=== PATIENT | male | born 1960 | race Caucasian/White ===

== ENCOUNTER 2021-02-02 13:41 | Emergency (ER) | payer MEDICAID, SELFPAY ==
--- NOTE | ~2021-02-02 | XR_ITS ---
EXAMINATION: CHEST, LEFT KNEE AND LEFT HIP CLINICAL INFORMATION: AMS. COMPARISON: Chest 07/27/2019 TECHNIQUE: Chest one view. Left knee 4 views. Left hip and AP pelvis 3 views. FINDINGS: CHEST: There is platelike atelectasis in the lingula. Rest lungs are clear. Heart size and pulmonary vascularity is normal. No gross bony abnormality seen. LEFT KNEE: There is moderate loss of medial and mild loss of vertebral compartment joint space without loose bodies, bony erosive changes or joint effusion. There is tricompartment periapical spurring. There is a small sclerotic density along the medial femoral condyle suggestive of osteochondritis dissecans. No abnormal joint effusion seen. LEFT HIP: There is a total left hip prosthesis with prosthetic components in satisfactory alignment. The right hip joint and the SI joints are symmetrical and normal. No visible acute fracture, dislocation or subluxation seen. XR/XR knee LT 4V IMPRESSION: Lingular platelike atelectasis. Total left hip prosthesis with prosthetic components in satisfactory alignment. Moderate degenerative changes medial and patellofemoral compartment with periarticular spurring of the tricompartments. 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 Total left hip prosthesis with the prosthetic components in satisfactory alignment. No acute fracture or dislocation seen.
--- NOTE | ~2021-02-02 | XR_ITS ---
EXAMINATION: CHEST, LEFT KNEE AND LEFT HIP CLINICAL INFORMATION: AMS. COMPARISON: Chest 07/27/2019 TECHNIQUE: Chest one view. Left knee 4 views. Left hip and AP pelvis 3 views. FINDINGS: CHEST: There is platelike atelectasis in the lingula. Rest lungs are clear. Heart size and pulmonary vascularity is normal. No gross bony abnormality seen. LEFT KNEE: There is moderate loss of medial and mild loss of vertebral compartment joint space without loose bodies, bony erosive changes or joint effusion. There is tricompartment periapical spurring. There is a small sclerotic density along the medial femoral condyle suggestive of osteochondritis dissecans. No abnormal joint effusion seen. LEFT HIP: There is a total left hip prosthesis with prosthetic components in satisfactory alignment. The right hip joint and the SI joints are symmetrical and normal. No visible acute fracture, dislocation or subluxation seen. XR/XR hip LT w PEL1V IMPRESSION: Lingular platelike atelectasis. Total left hip prosthesis with prosthetic components in satisfactory alignment. Moderate degenerative changes medial and patellofemoral compartment with periarticular spurring of the tricompartments. 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 Total left hip prosthesis with the prosthetic components in satisfactory alignment. No acute fracture or dislocation seen.
--- NOTE | ~2021-02-02 | XR_ITS ---
EXAMINATION: CHEST, LEFT KNEE AND LEFT HIP CLINICAL INFORMATION: AMS. COMPARISON: Chest 07/27/2019 TECHNIQUE: Chest one view. Left knee 4 views. Left hip and AP pelvis 3 views. FINDINGS: CHEST: There is platelike atelectasis in the lingula. Rest lungs are clear. Heart size and pulmonary vascularity is normal. No gross bony abnormality seen. LEFT KNEE: There is moderate loss of medial and mild loss of vertebral compartment joint space without loose bodies, bony erosive changes or joint effusion. There is tricompartment periapical spurring. There is a small sclerotic density along the medial femoral condyle suggestive of osteochondritis dissecans. No abnormal joint effusion seen. LEFT HIP: There is a total left hip prosthesis with prosthetic components in satisfactory alignment. The right hip joint and the SI joints are symmetrical and normal. No visible acute fracture, dislocation or subluxation seen. XR/XR chest 1V IMPRESSION: Lingular platelike atelectasis. Total left hip prosthesis with prosthetic components in satisfactory alignment. Moderate degenerative changes medial and patellofemoral compartment with periarticular spurring of the tricompartments. 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 Total left hip prosthesis with the prosthetic components in satisfactory alignment. No acute fracture or dislocation seen.
--- NOTE | ~2021-02-02 | CT_ITS ---
EXAMINATION: CT HEAD WITHOUT CONTRAST CLINICAL INFORMATION: Fall, AMS COMPARISON: None TECHNIQUE: Contiguous axial imaging was performed from the skull base to vertex without intravenous administration of contrast. This CT examination was performed using dose optimization techniques as appropriate, variously including the following: *Automated exposure control *Adjustment of mA and/or kV according to patient size (this includes techniques or standardized protocols for targeted exams where dose is matched to indication/reason for exam; i.e. extremities or head) *Use of iterative reconstruction technique DLP: 788 mGy-cm FINDINGS: There is no evidence of acute intracranial hemorrhage or territorial infarction. There is a small lacunar infarction right basal ganglia and chronically infarction along the left external capsule. No abnormal mass effect or midline shift is seen. Dorsey to white matter differentiation is well preserved. There is moderate prominence of bilateral frontal subarachnoid space. No extra-axial fluid collections are identified. The lateral ventricles are asymmetrical with left slightly larger the right but enlarged. There is moderate prominence of cerebellar arachnoid space in the posterior fossa suggestive of cerebellar volume loss. There is mild periventricular hypodensity in both cerebral hemispheres. The osseous structures and soft tissues are normal. The mastoid air cells and visualized portions of the paranasal sinuses are well aerated. CT/CT head/brain wo con IMPRESSION: No acute intracranial process seen. Moderate cerebellar and mild cerebral volume loss. Small lacunar infarction right basal ganglia and left external capsule.
[2021-02-02 13:55] VITALS: BP 129/84; PULSE 83; RESP 17; TEMP 36.4; O2SAT 95
[2021-02-02 14:03] VITALS: BP 129/80; BP 146/95; PULSE 83; PULSE 92; RESP 14; TEMP 36.4; O2SAT 94; O2SAT 97; BMI 24.4
--- NOTE | 2021-02-02 14:24 | ED.FALL ---
HPI - Fall General Chief Complaint: Fall <FÁTIMA Soto - Last Filed: 02/02/21 17:09> Stated Complaint: FALL <FÁTIMA Soto Last Filed: 02/02/21 17:09> Time Seen by Provider: 02/02/21 14:23 <FÁTIMA Soto Last Filed: 02/02/21 17:09> Source: other (RN from [facility]) <FÁTIMA Soto Last Filed: 02/02/21 17:09> Mode of arrival: EMS <FÁTIMA Soto Last Filed: 02/02/21 17:09> Limitations: altered mental status <FÁTIMA Soto Last Filed: 02/02/21 17:09> History of Present Illness HPI Narrative: 60-year-old male coming from neurological rehab facility who has history of hypoxic brain damage and epilepsy, presents for 2 falls in the last day. Both falls were witnessed because patient has a 1 on 1 staff member with him due to his increased aggression with other residents at the care facility. Patient had his left knee give out yesterday and fell onto his buttock. Same thing happened today. I spoke with RN at facility he says that normally patient waits for his meds, is not aggressive, goes to the dining room for his meals, and now has become more aggressive, is wandering the halls. RN states that patient can usually say her name, and has not been able to in the last 2 weeks. have changed in last 2 weeks. Patient is on Seroquel and has recently had an increase, no other med changes. No fevers, cough, vomiting, diarrhea. Patient has had stable vitals and is stable blood sugar <FÁTIMA Soto Last Filed: 02/02/21 17:09> Related Data Allergies/Adverse Reactions: Allergies Allergy/AdvReac Type Severity Reaction Status Date / Time No Known Allergies Allergy Unverified 11/18/19 19:51 [No Known Allergies*] <FÁTIMA Soto Last Filed: 02/02/21 17:09> Review of Systems Review of Systems: Review of systems limited by patient's brain injury <FÁTIMA Soto Last Filed: 02/02/21 17:09> Constitutional: Constitutional: Denies chills and Denies fever(s) <FÁTIMA Soto - Last Filed: 02/02/21 17:09> ENT: Denies post nasal drip and Denies sore throat <FÁTIMA Soto - Last Filed: 02/02/21 17:09> Cardiovascular: Cardiovascular: Denies chest pain, Denies leg edema and Denies Loss of Consciousness <FÁTIMA Soto - Last Filed: 02/02/21 17:09> Respiratory: Respiratory: Denies cough <FÁTIMA Soto - Last Filed: 02/02/21 17:09> Gastrointestinal: Gastrointestinal: Denies diarrhea and Denies vomiting <FÁTIMA Soto - Last Filed: 02/02/21 17:09> Musculoskeletal: Comments: left hip pain <FÁTIMA Soto - Last Filed: 02/02/21 17:09> Neurologic: Denies Abnormal speech present <FÁTIMA Soto - Last Filed: 02/02/21 17:09> [facility] Past Medical History [facility] Narrative: hypoxic brain injury; TBI epilepsy <FÁTIMA Soto - Last Filed: 02/02/21 17:09> Social History Social History: Social History Advance Directives: No Advance Directives Information Provided: Yes <FÁTIMA Soto - Last Filed: 02/02/21 17:09> Physical Exam Vital Signs: Vital Signs: Last Vital Signs Temp 97.5 F 02/02/21 14:03 Pulse 83 02/02/21 14:03 Resp 14 02/02/21 14:03 BP 129/80 02/02/21 14:03 Pulse Ox 94 02/02/21 14:03 BMI result Body Mass Index 24.4 <FÁTIMA Soto - Last Filed: 02/02/21 17:09> Vital Signs: Last Vital Signs Temp 97.5 F 02/02/21 14:03 Pulse 83 02/02/21 14:03 Resp 14 02/02/21 14:03 BP 129/80 02/02/21 14:03 Pulse Ox 94 02/02/21 14:03 BMI result Body Mass Index 24.4 <Arturo Pimentel MD - Last Filed: 02/02/21 16:51> Const: General: cooperative, no acute distress, well developed, alert and awake <Alida Tom ND - Last Filed: 02/02/21 17:09> Nutritional Appearance: well nourished <Alida Tom ND - Last Filed: 02/02/21 17:09> Orientation/consciousness: oriented to person, No oriented to place and No oriented to time <Alida Tom ND - Last Filed: 02/02/21 17:09> Limitations: physical limitations (brain injury) <Alida Tom ND - Last Filed: 02/02/21 17:09> HENMT: Head: Yes normal to inspection, Yes normocephalic and Yes atraumatic <Alida Tom ND - Last Filed: 02/02/21 17:09> Ears: hearing grossly normal bilaterally <Alida Tom ND - Last Filed: 02/02/21 17:09> General nose exam: Normal external nose present <Alida Tom ND - Last Filed: 02/02/21 17:09> Face and sinus: Yes normal facial exam <Alida Tom ND - Last Filed: 02/02/21 17:09> Mouth: Normal oral and palatal mucosa present <Alida Tom ND - Last Filed: 02/02/21 17:09> Throat: Yes posterior oropharynx normal <Alida Tom ND - Last Filed: 02/02/21 17:09> Eyes: Conjunctivae: conjunctivae normal <Alida Tom ND - Last Filed: 02/02/21 17:09> Pupils: Equal, round and reactive pupils present <Alida Tom ND - Last Filed: 02/02/21 17:09> EOM: EOMs intact bilaterally <Alida Tom ND - Last Filed: 02/02/21 17:09> Neck: Neck: Yes full ROM, Yes no lymphadenopathy and Yes supple <Alida Tom ND - Last Filed: 02/02/21 17:09> Resp: Effort & Inspection: normal respiratory effort and able to speak in complete sentences <Alida Tom ND - Last Filed: 02/02/21 17:09> Auscultation: clear to auscultation bilaterally, no crackles, no rales, no rhonchi and no wheezes <Alida Tom PA - Last Filed: 02/02/21 17:09> Cardio: Rate: regular rate <Alida Tom [facility] Last Filed: 02/02/21 17:09> Rhythm: regular rhythm <Alida Tom [facility] Last Filed: 02/02/21 17:09> Heart sounds: S1 normal heart sound present and S2 normal heart sound present <Alida Tom [facility] Last Filed: 02/02/21 17:09> GI: Inspection: Yes normal to inspection <Alida Tom [facility] Last Filed: 02/02/21 17:09> Palpation (GI): Soft to palpation, nontender, no guarding and not rigid <Alida Tom [facility] Last Filed: 02/02/21 17:09> Percussion: Yes normal to percussion <Alida Tom [facility] Last Filed: 02/02/21 17:09> Auscultation: normal bowel sounds <Alida Tom [facility] Last Filed: 02/02/21 17:09> Skin: General skin exam: no rashes or lesions noted <Alida Tom [facility] Last Filed: 02/02/21 17:09> Neuro: General: oriented to person, No oriented to place, No oriented to time, tone normal and moves all extremities <Alida Tom [facility] Last Filed: 02/02/21 17:09> Cranial nerves: Yes CN's II-XII intact bilaterally, Yes Equal, round and reactive pupils present, Yes Bilaterally intact EOM present, Yes Nystagmus not present, Yes Normal facial strength present, Yes Midline tongue present, Yes Ability to bilaterally rotate head present and Yes Ability to bilaterally elevate shoulders present <Alida Tom [facility] Last Filed: 02/02/21 17:09> Speech: No Abnormal speech present <Alida Tom [facility] Last Filed: 02/02/21 17:09> Gait exam (Neuro): Normal gait present <Alida Tom [facility] Last Filed: 02/02/21 17:09> Motor exam (neuro): 5/5 motor strength present throughout <Alida Tom [facility] Last Filed: 02/02/21 17:09> Coordination: No [id number] test normal (ataxic) <FÁTIMA Soto - Last Filed: 02/02/21 17:09> Pupils: Normal pupillary reactivity/response: bilateral <FÁTIMA Soto - Last Filed: 02/02/21 17:09> Extrem: General: Yes normal to inspection and Yes full ROM <FÁTIMA Soto - Last Filed: 02/02/21 17:09> Psych: Appearance: grossly normal <FÁTIMA Soto - Last Filed: 02/02/21 17:09> Affect: normal affect <FÁTIMA Soto - Last Filed: 02/02/21 17:09> Attitude: cooperative <FÁTIMA Soto - Last Filed: 02/02/21 17:09> Thought process: Normal thought process present <FÁTIMA Soto Last Filed: 02/02/21 17:09> Course Course Course Narrative: 60-year-old male with hypoxic brain injury at baseline, sent from neurologic care facility for evaluation of falls in the last day, and behavioral changes for the last 2 weeks. On exam, patient is pleasant and cooperative, is able to respond to commands. From a labs show white blood cell 4.3, mildly elevated LFTs. Head CT shows a lacunar infarct in the right basal ganglia and left external capsule. Patient has platelike atelectasis in lingula on chest x-ray, and arthritis in left hip and knee but no fracture or dislocation. Discussed with Dr Pimentel pt's low platelets and low WBC line; concern for pt possibly developing a hematological disorder. Patient's urine shows no infection. Will discharge patient back to [facility] with PCP follow-up for hematological changes and lacunar infarct. CT/CT head/brain wo con IMPRESSION: No acute intracranial process seen. ? Moderate cerebellar and mild cerebral volume loss. ? Small lacunar infarction right basal ganglia and left external capsule. XR FINDINGS: CHEST: There is platelike atelectasis in the lingula. Rest lungs are clear. Heart size and pulmonary vascularity is normal. No gross bony abnormality seen. LEFT KNEE: There is moderate loss of medial and mild loss of vertebral compartment joint space without loose bodies, bony erosive changes or joint effusion. There is tricompartment periapical spurring. There is a small sclerotic density along the medial femoral condyle suggestive of osteochondritis dissecans. No abnormal joint effusion seen. LEFT HIP: There is a total left hip prosthesis with prosthetic components in satisfactory alignment. The right hip joint and the SI joints are symmetrical and normal. No visible acute fracture, dislocation or subluxation seen.? <FÁTIMA Soto - Last Filed: 02/02/21 17:09> Reevaluation(s) Reevaluation #1: discussed plan and history with the patient <Arturo Pimentel MD - Last Filed: 02/02/21 16:51> Time: 16:51 <Arturo Pimentel MD - Last Filed: 02/02/21 16:51> MDM - Fall Lab Data Result diagrams: : 02/02/21 15:16 02/02/21 15:17 <FÁTIMA Soto - Last Filed: 02/02/21 17:09> Labs: Lab Results 02/02/21 02/02/21 02/02/21 Range/Units 15:16 15:16 15:17 WBC 4.3 L (4.8-10.8) X10*3/uL RBC 4.86 (4.60-5.80) X10*6/uL Hgb 14.4 (14.0-18.0) g/dl Hct 43.1 (42.0-52.0) % MCV 88.7 (80.0-98.0) fL MCH 29.6 (27.0-33.0) pg MCHC 33.4 (31.0-36.0) g/dl RDW 12.6 (11.0-16.0) % Plt Count 154 L (160-400) X10*3/uL MPV 9.3 L (9.4-12.4) fL Immature Gran % (Auto) 0.2 (0.0-0.4) % Neut % (Auto) 49.1 (45-73) % Lymph % (Auto) 38.5 (20-40) % [place] % (Auto) 10.8 (2-11) % Eos % (Auto) 0.9 (0-4) % Baso % (Auto) 0.5 (0-2) % Lymph # (Auto) 1.7 (1.2-4.9) X10*3/uL [place] # (Auto) 0.5 (0.1-1.2) X10*3/uL Eos # (Auto) 0.0 (0.0-0.4) X10*3/uL Baso # (Auto) 0.0 (0.0-0.2) X10*3/uL Abs Immat Gran (auto) 0.01 (0.00-0.03) X10*3/uL Absolute Neuts (auto) 2.1 (2.0-8.3) x10*3/uL Absolute Nucleated RBC 0.000 (0.0-0.012) X10*3/uL Nucleated RBC % (auto) 0.0 (0.0-0.2) /100WBC Sodium 141 (135-145) mmol/L Potassium 4.3 (3.3-5.1) mmol/L Chloride 108 (96-108) mmol/L Carbon Dioxide 26 (22-29) mmol/L Anion Gap 11 L (12-20) BUN 10 (9-16) mg/dL Creatinine 0.71 (0.5-1.4) mg/dL Estim Creat Clear Calc 119.9 Estimated GFR > 60 Random Glucose 108 (60-115) mg/dL Calcium 8.7 (8.4-10.2) mg/dL Total Bilirubin 0.5 (0.0-1.0) mg/dL AST 44 H (5-37) U/L ALT 71 H (0-40) U/L Alkaline Phosphatase 53 (39-117) U/L Total Protein 6.5 (6.5-8.0) g/dL Albumin 3.7 (3.5-5.0) g/dL Urine Color Urine Appearance Urine pH (5.0-8.0) Ur Specific [place] (1.005-1.025) Urine Protein (NEG-TRACE) MG/DL Urine Glucose (UA) (NEG) MG/DL Urine Ketones (NEG) MG/DL Urine Blood (NEG) Urine Nitrite (NEG) Ur Leukocyte Esterase (NEG) COVID-19 (ED) Negative (Negative) COVID-19 Clin Com See Note 02/02/21 Range/Units 16:52 WBC (4.8-10.8) X10*3/uL RBC (4.60-5.80) X10*6/uL Hgb (14.0-18.0) g/dl Hct (42.0-52.0) % MCV (80.0-98.0) fL MCH (27.0-33.0) pg MCHC (31.0-36.0) g/dl RDW (11.0-16.0) % Plt Count (160-400) X10*3/uL MPV (9.4-12.4) fL Immature Gran % (Auto) (0.0-0.4) % Neut % (Auto) (45-73) % Lymph % (Auto) (20-40) % [place] % (Auto) (2-11) % Eos % (Auto) (0-4) % Baso % (Auto) (0-2) % Lymph # (Auto) (1.2-4.9) X10*3/uL [place] # (Auto) (0.1-1.2) X10*3/uL Eos # (Auto) (0.0-0.4) X10*3/uL Baso # (Auto) (0.0-0.2) X10*3/uL Abs Immat Gran (auto) (0.00-0.03) X10*3/uL Absolute Neuts (auto) (2.0-8.3) x10*3/uL Absolute Nucleated RBC (0.0-0.012) X10*3/uL Nucleated RBC % (auto) (0.0-0.2) /100WBC Sodium (135-145) mmol/L Potassium (3.3-5.1) mmol/L Chloride (96-108) mmol/L Carbon Dioxide (22-29) mmol/L Anion Gap (12-20) BUN (9-16) mg/dL Creatinine (0.5-1.4) mg/dL Estim Creat Clear Calc Estimated GFR Random Glucose (60-115) mg/dL Calcium (8.4-10.2) mg/dL Total Bilirubin (0.0-1.0) mg/dL AST (5-37) U/L ALT (0-40) U/L Alkaline Phosphatase (39-117) U/L Total Protein (6.5-8.0) g/dL Albumin (3.5-5.0) g/dL Urine Color YELLOW Urine Appearance CLEAR Urine pH 6.0 (5.0-8.0) Ur Specific [place] 1.010 (1.005-1.025) Urine Protein NEG (NEG-TRACE) MG/DL Urine Glucose (UA) NEG (NEG) MG/DL Urine Ketones NEG (NEG) MG/DL Urine Blood NEG (NEG) Urine Nitrite NEG (NEG) Ur Leukocyte Esterase NEG (NEG) COVID-19 (ED) (Negative) COVID-19 Clin Com <FÁTIMA Soto - Last Filed: 02/02/21 17:09> Lab Results 02/02/21 02/02/21 02/02/21 Range/Units 15:16 15:16 15:17 WBC 4.3 L (4.8-10.8) X10*3/uL RBC 4.86 (4.60-5.80) X10*6/uL Hgb 14.4 (14.0-18.0) g/dl Hct 43.1 (42.0-52.0) % MCV 88.7 (80.0-98.0) fL MCH 29.6 (27.0-33.0) pg MCHC 33.4 (31.0-36.0) g/dl RDW 12.6 (11.0-16.0) % Plt Count 154 L (160-400) X10*3/uL MPV 9.3 L (9.4-12.4) fL Immature Gran % (Auto) 0.2 (0.0-0.4) % Neut % (Auto) 49.1 (45-73) % Lymph % (Auto) 38.5 (20-40) % [place] % (Auto) 10.8 (2-11) % Eos % (Auto) 0.9 (0-4) % Baso % (Auto) 0.5 (0-2) % Lymph # (Auto) 1.7 (1.2-4.9) X10*3/uL [place] # (Auto) 0.5 (0.1-1.2) X10*3/uL Eos # (Auto) 0.0 (0.0-0.4) X10*3/uL Baso # (Auto) 0.0 (0.0-0.2) X10*3/uL Abs Immat Gran (auto) 0.01 (0.00-0.03) X10*3/uL Absolute Neuts (auto) 2.1 (2.0-8.3) x10*3/uL Absolute Nucleated RBC 0.000 (0.0-0.012) X10*3/uL Nucleated RBC % (auto) 0.0 (0.0-0.2) /100WBC Sodium 141 (135-145) mmol/L Potassium 4.3 (3.3-5.1) mmol/L Chloride 108 (96-108) mmol/L Carbon Dioxide 26 (22-29) mmol/L Anion Gap 11 L (12-20) BUN 10 (9-16) mg/dL Creatinine 0.71 (0.5-1.4) mg/dL Estim Creat Clear Calc 119.9 Estimated GFR > 60 Random Glucose 108 (60-115) mg/dL Calcium 8.7 (8.4-10.2) mg/dL Total Bilirubin 0.5 (0.0-1.0) mg/dL AST 44 H (5-37) U/L ALT 71 H (0-40) U/L Alkaline Phosphatase 53 (39-117) U/L Total Protein 6.5 (6.5-8.0) g/dL Albumin 3.7 (3.5-5.0) g/dL Urine Color Urine Appearance Urine pH (5.0-8.0) Ur Specific [place] (1.005-1.025) Urine Protein (NEG-TRACE) MG/DL Urine Glucose (UA) (NEG) MG/DL Urine Ketones (NEG) MG/DL Urine Blood (NEG) Urine Nitrite (NEG) Ur Leukocyte Esterase (NEG) COVID-19 (ED) Negative (Negative) COVID-19 Clin Com See Note 02/02/21 Range/Units 16:52 WBC (4.8-10.8) X10*3/uL RBC (4.60-5.80) X10*6/uL Hgb (14.0-18.0) g/dl Hct (42.0-52.0) % MCV (80.0-98.0) fL MCH (27.0-33.0) pg MCHC (31.0-36.0) g/dl RDW (11.0-16.0) % Plt Count (160-400) X10*3/uL MPV (9.4-12.4) fL Immature Gran % (Auto) (0.0-0.4) % Neut % (Auto) (45-73) % Lymph % (Auto) (20-40) % [place] % (Auto) (2-11) % Eos % (Auto) (0-4) % Baso % (Auto) (0-2) % Lymph # (Auto) (1.2-4.9) X10*3/uL [place] # (Auto) (0.1-1.2) X10*3/uL Eos # (Auto) (0.0-0.4) X10*3/uL Baso # (Auto) (0.0-0.2) X10*3/uL Abs Immat Gran (auto) (0.00-0.03) X10*3/uL Absolute Neuts (auto) (2.0-8.3) x10*3/uL Absolute Nucleated RBC (0.0-0.012) X10*3/uL Nucleated RBC % (auto) (0.0-0.2) /100WBC Sodium (135-145) mmol/L Potassium (3.3-5.1) mmol/L Chloride (96-108) mmol/L Carbon Dioxide (22-29) mmol/L Anion Gap (12-20) BUN (9-16) mg/dL Creatinine (0.5-1.4) mg/dL Estim Creat Clear Calc Estimated GFR Random Glucose (60-115) mg/dL Calcium (8.4-10.2) mg/dL Total Bilirubin (0.0-1.0) mg/dL AST (5-37) U/L ALT (0-40) U/L Alkaline Phosphatase (39-117) U/L Total Protein (6.5-8.0) g/dL Albumin (3.5-5.0) g/dL Urine Color YELLOW Urine Appearance CLEAR Urine pH 6.0 (5.0-8.0) Ur Specific [place] 1.010 (1.005-1.025) Urine Protein NEG (NEG-TRACE) MG/DL Urine Glucose (UA) NEG (NEG) MG/DL Urine Ketones NEG (NEG) MG/DL Urine Blood NEG (NEG) Urine Nitrite NEG (NEG) Ur Leukocyte Esterase NEG (NEG) COVID-19 (ED) (Negative) COVID-19 Clin Com <Arturo Pimentel MD - Last Filed: 02/02/21 16:51> Discharge Plan Discharge Clinical Impression: Thrombocytopenia, Lacunar infarct, acute Leukopenia Qualifiers: Leukopenia type: unspecified Qualified Code(s): D72.819 - Decreased white blood cell count, unspecified <FÁTIMA Soto - Last Filed: 02/02/21 17:09> Patient Disposition: [facility] <FÁTIMA Soto - Last Filed: 02/02/21 17:09> Transfer Details: Back to [facility] <FÁTIMA Soto - Last Filed: 02/02/21 17:09> Back to [facility] facility <Arturo Pimentel MD - Last Filed: 02/02/21 16:51> Additional Instructions: Patient needs further evaluation for his low platelets and low white blood cell count. Patient was found to have a right-sided lacunar infarct. Patient needs follow-up with primary care provider. <FÁTIMA Soto - Last Filed: 02/02/21 17:09>
[2021-02-02 15:21] LABS: MANUAL DIFF FLAG NO
[2021-02-02 15:24] LABS: Basophils Percent Auto 0.5 % (0-2); Eosinophils Percent Auto 0.9 % (0-4); Hematocrit 43.1 % (42.0-52.0); Hemoglobin 14.4 g/dl (14.0-18.0); Imm Gran Abs Auto 0.01 X10*3/uL (0.00-0.03); Imm Gran Pct Auto 0.2 % (0.0-0.4); Lymphocytes Absolute Auto 1.7 X10*3/uL (1.2-4.9); Lymphocytes Percent Auto 38.5 % (20-40); Mean Corpuscular HGB Conc 33.4 g/dl (31.0-36.0); Mean Corpuscular Hemoglobin 29.6 pg (27.0-33.0); Mean Corpuscular Volume 88.7 fL (80.0-98.0); Mean Platelet Volume 9.3 fL (9.4-12.4); Monocytes Absolute Auto 0.5 X10*3/uL (0.1-1.2); Monocytes Percent Auto 10.8 % (2-11); Neutrophils Absolute Auto 2.1 x10*3/uL (2.0-8.3); Neutrophils Percent Auto 49.1 % (45-73); Platelet Count 154 X10*3/uL (160-400); Red Blood Count 4.86 X10*6/uL (4.60-5.80); Red Cell Distribution Width 12.6 % (11.0-16.0); White Blood Count 4.3 X10*3/uL (4.8-10.8)
[2021-02-02 15:39] LABS: COVID-19 Test Negative (Negative); IDNOW Serial# 9DD0AD1C
[2021-02-02 15:39] LABS: Alanine Aminotransferase 71 U/L (0-40); Albumin Level 3.7 g/dL (3.5-5.0); Alkaline Phosphatase 53 U/L (39-117); Anion Gap 11 (12-20); Aspartate Amino Transferase 44 U/L (5-37); Bilirubin Total 0.5 mg/dL (0.0-1.0); Blood Urea Nitrogen 10 mg/dL (9-16); Calcium 8.7 mg/dL (8.4-10.2); Carbon Dioxide 26 mmol/L (22-29); Chloride 108 mmol/L (96-108); Creatinine Clr Calc Pharmacy 119.9; Estimated Glomerular Filt Rate > 60; Glucose Random 108 mg/dL (60-115); Potassium 4.3 mmol/L (3.3-5.1); Sodium 141 mmol/L (135-145); Total Protein 6.5 g/dL (6.5-8.0)
[2021-02-02 16:59] LABS: Appearance Urine CLEAR; Color Urine YELLOW; Glucose Urine UA NEG (NEG); Leukocyte Esterase Urine NEG (NEG); Nitrite Urine NEG (NEG); Urine Blood NEG (NEG); Urine Ketones NEG (NEG); Urine Protein NEG (NEG-TRACE)
[2021-02-02 17:28] LABS: Mucus Urine TRACE /LPF; RBC Urine 0-2 /HPF (0); Squamous Epithelial Cell Urine TRACE /LPF; WBC Urine 0-2 /HPF (0-4)
== END 2021-02-02 22:14 ==
PROVIDERS: Physician Assistant; Emergency Provider Emergency Medicine
DX: I63.81 Other cerebral infarction due to occlusion or stenosis of small artery (principal); D72.819 Decreased white blood cell count, unspecified; G93.1 Anoxic brain damage, not elsewhere classified; G40.909 Epilepsy, unspecified, not intractable, without status epilepticus; Z20.822 Contact with and (suspected) exposure to COVID-19
CPT/HCPCS: 36415; 70450; 71045; 73502; 73564; 80053; 81001; 85025; 87635; 99284; 99285

== ENCOUNTER 2021-05-10 08:13 | Outpatient (REF) | payer MEDICAID, SELFPAY ==
--- NOTE | ~2021-05-10 | CT_ITS ---
EXAMINATION: CT HEAD WITH/WITHOUT CONTRAST CLINICAL INFORMATION: Epilepsy COMPARISON: 02/02/2021 TECHNIQUE: Contiguous axial imaging was performed from the skull base to vertex before and after the administration of 85 mL of Omnipaque [address] examination was performed using dose optimization techniques as appropriate, variously including the following: *Automated exposure control *Adjustment of mA and/or kV according to patient size (this includes techniques or standardized protocols for targeted exams where dose is matched to indication/reason for exam; i.e. extremities or head) *Use of iterative reconstruction technique DLP: 1658 mGy-cm FINDINGS: There is a holohemispheric left cerebral convexity subdural hematoma measuring 2 cm in thickness. This is uniform in attenuation, appearing isointense. There is mass effect locally with rightward midline shift of 0.8 cm. There is also a small right high convexity cerebral subdural hematoma. This measures 0.4 cm in thickness when measured on coronal imaging. There is no evidence of territorial infarction. Dorsey to white matter differentiation is well preserved. There is no abnormal enhancement. The ventricles are normal in size. Area of hypoattenuation involving the right temporal lobe suggesting chronic infarct, unchanged from prior. Areas of infarct also seen involving the cerebellum, in both hemispheres. The osseous structures and soft tissues are normal. The mastoid air cells and visualized portions of the paranasal sinuses are well aerated. CT/CT head/brain wo/w con IMPRESSION: Holohemispheric left subdural hematoma resulting in mass effect and rightward midline shift. There is also a small right high cerebral convexity subdural hematoma. This critical result was discussed with Katharine Martinez by telephone at 05/10/2021 9:43 AM and it was ascertained that the content and urgency of the report was understood at the time of direct communication.
[2021-05-10] MEDS: iohexoL 350 MG/ML 100 ML INFUS..BTL IV (09:33)
== END 2021-05-10 08:14 | disposition home or self-care (01) ==
LOC: HO.CT 08:13
PROVIDERS: Visit Provider Hospitalist
DX: G40.909 Epilepsy, unspecified, not intractable, without status epilepticus (principal)
CPT/HCPCS: 70470; Q9967

== ENCOUNTER 2021-05-10 09:35 | Emergency (ER) | payer MEDICAID, SELFPAY ==
[2021-05-10] VITALS (7 sets, daily range): BP systolic 106–151; BP diastolic 76–92; PULSE 62–78; RESP 10–18; TEMP 36.4–37.1; O2SAT 94–99; BMI 25.0; BMI 25.2
--- NOTE | 2021-05-10 10:09 | ECG_ITS ---
Test Reason : BRAIN BLEED Blood Pressure : / mmHG Vent. Rate : 070 BPM Atrial Rate : 070 BPM P-R Int : 200 ms QRS Dur : 076 ms QT Int : 378 ms P-R-T Axes : 052 062 062 degrees QTc Int : 408 ms Normal sinus rhythm Normal ECG When compared with ECG of 27-JUL-2019 22:17, Vent. rate has decreased BY 39 BPM Referred By: Katharine Martinez Electronically Signed By:BRITNEY ABRAHAM MD
--- NOTE | 2021-05-10 10:30 | ED.GENADULT ---
HPI - General Adult General Chief complaint: General Medical Stated complaint: abnormal ct scan Time Seen by Provider: 05/10/21 09:41 Source: patient and other (half-way staff) Mode of arrival: ambulatory Limitations: no limitations History of Present Illness HPI narrative: Patient was asked to come to the emergency room after he had a head CT done earlier today. The CT scan shows a holohemispheric left subdural hematoma resulting in mass effect and rightward midline shift, also a small right cerebral subdural hematoma. Patient has history of hypoxic brain injury, and therefore he is a poor historian. Patient is asymptomatic, his behavior is at baseline per caretakers. Also, I spoke with Dr. Hollins who knows the patient very well. Starting at the beginning of April, patient has had behavioral changes, the neurologist ordered an EEG and head CT. Head CT was done today which showed the above-mentioned. Patient cannot remember if he fell. Patient used to be on a one-to-one until approximately 1 week. Related Data Previous Rx's Medication Instructions Recorded methylprednisolone 4 mg tablet See Rx Instructions .ROUTE 05/10/21 (Medrol) .COMPLEX #21 tab tranexamic acid 650 mg tablet 650 mg PO BID 21 Days #42 tab 05/10/21 Allergies Allergy/AdvReac Type Severity Reaction Status Date / Time No Known Allergies Allergy Unverified 11/18/19 19:51 [No Known Allergies*] Review of Systems Review of Systems: Constitutional : No fever ENT/Mouth : No ear pain or sore throat Eyes: No eye pain or swelling Cardiovascular : No Chest Pain, No SOB Respiratory : No Cough, No Sputum, No Wheezing, No Smoke Exposure, No Dyspnea Gastrointestinal : No nausea vomiting or diarrhea Genitourinary : No dysuria or hematuria Musculoskeletal : No joint pain or swelling Skin : No Skin Lesions, No rash Neuro : No headache, no dizziness, no motor weakness or paresthesias Psych : No anxiety or depression Heme/Lymph: No Bruising, No Bleeding Endocrine : No Polyuria, No Polydipsia PMFSH Past Medical History Medical History (Updated 05/10/21 @ 12:51 by Katharine Martinez MD) Anoxic brain injury Epilepsy Lacunar infarction Subdural hematoma Social History Social History Alcohol intake: never Patient Tobacco Use Status: Never used Tobacco Use of substances other than those prescribed or required for medical reasons: No Advance Directives: Yes Advance Directives Information Provided: Yes Advance Directives on File: No Physical Exam ED Vital Signs: Vital Signs - 24 hr 05/10/21 09:41 05/10/21 10:25 05/10/21 10:55 Temperature 98.8 F 98.2 F Pulse Rate 70 66 64 Respiratory Rate 18 10 L 13 Blood Pressure 140/91 H 128/91 H 136/83 Pulse Oximetry 94 94 99 05/10/21 11:11 05/10/21 11:43 Temperature 98.4 F 97.8 F Pulse Rate 65 65 Respiratory Rate 11 L 10 L Blood Pressure 106/76 130/90 H Pulse Oximetry 97 97 BMI result Body Mass Index 25.2 Course Course Course Narrative: I discussed the patient with Dr. Lucas. Initially, since patient is asymptomatic, recommended that the patient can stay here. Dr. Hollins came to see the patient who knows very well. Patient is neurologically and mentally at baseline. Patient remains asymptomatic, alert and oriented, neurologically intact 11:40 Dr. Lucas, recommends transfer to [facility]. I discussed the patient with neurosurgery FÁTIMA Means, who consulted with the neurosurgery attending. At this time, emergent transferred is not necessary. Patient can go home and they will repeat the head CT in 2 weeks. Recommendations: 650 mg of p.o. tranexamic acid for 21 days and Solu-Medrol Dosepak Patient was given the 1st dose TXA oral in the emergency room. IV forearm had to be used, but given orally, ok per pharmacy Medical Decision Making Lab Data Result diagrams: 05/10/21 10:30 05/10/21 10:29 Labs: Lab Results 05/10/21 05/10/21 05/10/21 Range/Units 10:27 10:29 10:29 WBC (4.8-10.8) X10*3/uL RBC (4.60-5.80) X10*6/uL Hgb (14.0-18.0) g/dl Hct (42.0-52.0) % MCV (80.0-98.0) fL MCH (27.0-33.0) pg MCHC (31.0-36.0) g/dl RDW (11.0-16.0) % Plt Count (160-400) X10*3/uL MPV (9.4-12.4) fL Immature Gran % (Auto) (0.0-0.4) % Neut % (Auto) (45-73) % Lymph % (Auto) (20-40) % Canyon % (Auto) (2-11) % Eos % (Auto) (0-4) % Baso % (Auto) (0-2) % Lymph # (Auto) (1.2-4.9) X10*3/uL Canyon # (Auto) (0.1-1.2) X10*3/uL Eos # (Auto) (0.0-0.4) X10*3/uL Baso # (Auto) (0.0-0.2) X10*3/uL Abs Immat Gran (auto) (0.00-0.03) X10*3/uL Absolute Neuts (auto) (2.0-8.3) x10*3/uL Absolute Nucleated RBC (0.0-0.012) X10*3/uL Nucleated RBC % (auto) (0.0-0.2) /100WBC PT 12.9 (9.9-13.0) SEC INR 1.1 (0.9-1.1) Sodium 140 (135-145) mmol/L Potassium 4.4 (3.3-5.1) mmol/L Chloride 104 (96-108) mmol/L Carbon Dioxide 28 (22-29) mmol/L Anion Gap 12 (12-20) BUN 10 (9-16) mg/dL Creatinine 0.74 (0.5-1.4) mg/dL Estim Creat Clear Calc 115.0 Estimated GFR > 60 POC Glucose 92 (60-115) mg/dL Random Glucose 86 (60-115) mg/dL Calcium 9.2 (8.4-10.2) mg/dL Troponin I High Sens (<3.5-35.0) ng/L Urine Color Urine Appearance Urine pH (5.0-8.0) Ur Specific [place] (1.005-1.025) Urine Protein (NEG-TRACE) MG/DL Urine Glucose (UA) (NEG) MG/DL Urine Ketones (NEG) MG/DL Urine Blood (NEG) Urine Nitrite (NEG) Ur Leukocyte Esterase (NEG) Urine Opiates Screen (Not Detect) Urine Fentanyl Screen (Not Detect) Ur Barbiturates Screen (Not Detect) Ur Phencyclidine Scrn (Not Detect) Ur Amphetamines Screen (Not Detect) U Benzodiazepines Scrn (Not Detect) Urine Cocaine Screen (Not Detect) U Marijuana (THC) Screen (Not Detect) COVID-19 (ED) (Negative) COVID-19 Clin Com 05/10/21 05/10/21 05/10/21 Range/Units 10:29 10:29 10:30 WBC 3.8 L (4.8-10.8) X10*3/uL RBC 4.65 (4.60-5.80) X10*6/uL Hgb 13.5 L (14.0-18.0) g/dl Hct 41.1 L (42.0-52.0) % MCV 88.4 (80.0-98.0) fL MCH 29.0 (27.0-33.0) pg MCHC 32.8 (31.0-36.0) g/dl RDW 12.7 (11.0-16.0) % Plt Count 153 L (160-400) X10*3/uL MPV 9.1 L (9.4-12.4) fL Immature Gran % (Auto) 0.3 (0.0-0.4) % Neut % (Auto) 46.1 (45-73) % Lymph % (Auto) 42.6 H (20-40) % Canyon % (Auto) 8.4 (2-11) % Eos % (Auto) 2.1 (0-4) % Baso % (Auto) 0.5 (0-2) % Lymph # (Auto) 1.6 (1.2-4.9) X10*3/uL Canyon # (Auto) 0.3 (0.1-1.2) X10*3/uL Eos # (Auto) 0.1 (0.0-0.4) X10*3/uL Baso # (Auto) 0.0 (0.0-0.2) X10*3/uL Abs Immat Gran (auto) 0.01 (0.00-0.03) X10*3/uL Absolute Neuts (auto) 1.8 L (2.0-8.3) x10*3/uL Absolute Nucleated RBC 0.000 (0.0-0.012) X10*3/uL Nucleated RBC % (auto) 0.0 (0.0-0.2) /100WBC PT (9.9-13.0) SEC INR (0.9-1.1) Sodium (135-145) mmol/L Potassium (3.3-5.1) mmol/L Chloride (96-108) mmol/L Carbon Dioxide (22-29) mmol/L Anion Gap (12-20) BUN (9-16) mg/dL Creatinine (0.5-1.4) mg/dL Estim Creat Clear Calc Estimated GFR POC Glucose (60-115) mg/dL Random Glucose (60-115) mg/dL Calcium (8.4-10.2) mg/dL Troponin I High Sens < 3.5 (<3.5-35.0) ng/L Urine Color Urine Appearance Urine pH (5.0-8.0) Ur Specific [place] (1.005-1.025) Urine Protein (NEG-TRACE) MG/DL Urine Glucose (UA) (NEG) MG/DL Urine Ketones (NEG) MG/DL Urine Blood (NEG) Urine Nitrite (NEG) Ur Leukocyte Esterase (NEG) Urine Opiates Screen (Not Detect) Urine Fentanyl Screen (Not Detect) Ur Barbiturates Screen (Not Detect) Ur Phencyclidine Scrn (Not Detect) Ur Amphetamines Screen (Not Detect) U Benzodiazepines Scrn (Not Detect) Urine Cocaine Screen (Not Detect) U Marijuana (THC) Screen (Not Detect) COVID-19 (ED) Negative (Negative) COVID-19 Clin Com See Note 05/10/21 05/10/21 Range/Units 11:09 11:09 WBC (4.8-10.8) X10*3/uL RBC (4.60-5.80) X10*6/uL Hgb (14.0-18.0) g/dl Hct (42.0-52.0) % MCV (80.0-98.0) fL MCH (27.0-33.0) pg MCHC (31.0-36.0) g/dl RDW (11.0-16.0) % Plt Count (160-400) X10*3/uL MPV (9.4-12.4) fL Immature Gran % (Auto) (0.0-0.4) % Neut % (Auto) (45-73) % Lymph % (Auto) (20-40) % Canyon % (Auto) (2-11) % Eos % (Auto) (0-4) % Baso % (Auto) (0-2) % Lymph # (Auto) (1.2-4.9) X10*3/uL Canyon # (Auto) (0.1-1.2) X10*3/uL Eos # (Auto) (0.0-0.4) X10*3/uL Baso # (Auto) (0.0-0.2) X10*3/uL Abs Immat Gran (auto) (0.00-0.03) X10*3/uL Absolute Neuts (auto) (2.0-8.3) x10*3/uL Absolute Nucleated RBC (0.0-0.012) X10*3/uL Nucleated RBC % (auto) (0.0-0.2) /100WBC PT (9.9-13.0) SEC INR (0.9-1.1) Sodium (135-145) mmol/L Potassium (3.3-5.1) mmol/L Chloride (96-108) mmol/L Carbon Dioxide (22-29) mmol/L Anion Gap (12-20) BUN (9-16) mg/dL Creatinine (0.5-1.4) mg/dL Estim Creat Clear Calc Estimated GFR POC Glucose (60-115) mg/dL Random Glucose (60-115) mg/dL Calcium (8.4-10.2) mg/dL Troponin I High Sens (<3.5-35.0) ng/L Urine Color YELLOW Urine Appearance CLEAR Urine pH 6.0 (5.0-8.0) Ur Specific [place] <= 1.005 (1.005-1.025) Urine Protein NEG (NEG-TRACE) MG/DL Urine Glucose (UA) NEG (NEG) MG/DL Urine Ketones NEG (NEG) MG/DL Urine Blood NEG (NEG) Urine Nitrite NEG (NEG) Ur Leukocyte Esterase NEG (NEG) Urine Opiates Screen Not Detected (Not Detect) Urine Fentanyl Screen Not Detected (Not Detect) Ur Barbiturates Screen Not Detected (Not Detect) Ur Phencyclidine Scrn Not Detected (Not Detect) Ur Amphetamines Screen Not Detected (Not Detect) U Benzodiazepines Scrn Not Detected (Not Detect) Urine Cocaine Screen Not Detected (Not Detect) U Marijuana (THC) Screen Not Detected (Not Detect) COVID-19 (ED) (Negative) COVID-19 Clin Com Discharge Plan Discharge Clinical Impression: Subdural hematoma Patient Disposition: Home, Self-Care Instructions: Intracranial Hematoma (ED) Additional Instructions: [facility] will schedule an appointment for you in [address] scan. If you have any new symptoms, please return to the emergency room immediately. Also, please follow-up with your primary care physician tomorrow. If you have any worsening or new symptoms, please return to the emergency room or call 911 Prescriptions: New methylprednisolone [Medrol] 4 mg tablet See Rx Instructions .ROUTE .COMPLEX Qty: 21 0RF Rx Instructions: Day 1: 24 mg on day 1 administered as 8 mg (2 tablets) before breakfast, 4 mg (1 tablet) after lunch, 4 mg (1 tablet) after supper, and 8 mg (2 tablets) at bedtime or 24 mg (6 tablets) as a single dose or divided into 2 or 3 doses upon initiation (regardless of time of day). Day 2: 20 mg on day 2 administered as 4 mg (1 tablet) before breakfast, 4 mg (1 tablet) after lunch, 4 mg (1 tablet) after supper, and 8 mg (2 tablets) at bedtime. Day 3: 16 mg on day 3 administered as 4 mg (1 tablet) before breakfast, 4 mg (1 tablet) after lunch, 4 mg (1 tablet) after supper, and 4 mg (1 tablet) at bedtime. Day 4: 12 mg on day 4 administered as 4 mg (1 tablet) before breakfast, 4 mg (1 tablet) after lunch, and 4 mg (1 tablet) at bedtime. Day 5: 8 mg on day 5 administered as 4 mg (1 tablet) before breakfast and 4 mg (1 tablet) at bedtime. Day 6: 4 mg on day 6 administered as 4 mg (1 tablet) before breakfast. tranexamic acid 650 mg tablet 650 mg PO BID 21 Days Qty: 42 0RF
[2021-05-10 10:31] LABS: Glucose, Whole Blood 92 mg/dL (60-115)
[2021-05-10 10:36] LABS: MANUAL DIFF FLAG NO
[2021-05-10 10:38] LABS: Basophils Percent Auto 0.5 % (0-2); Eosinophils Absolute Auto 0.1 X10*3/uL (0.0-0.4); Eosinophils Percent Auto 2.1 % (0-4); Hematocrit 41.1 % (42.0-52.0); Hemoglobin 13.5 g/dl (14.0-18.0); Imm Gran Abs Auto 0.01 X10*3/uL (0.00-0.03); Imm Gran Pct Auto 0.3 % (0.0-0.4); Lymphocytes Absolute Auto 1.6 X10*3/uL (1.2-4.9); Lymphocytes Percent Auto 42.6 % (20-40); Mean Corpuscular HGB Conc 32.8 g/dl (31.0-36.0); Mean Corpuscular Volume 88.4 fL (80.0-98.0); Mean Platelet Volume 9.1 fL (9.4-12.4); Monocytes Absolute Auto 0.3 X10*3/uL (0.1-1.2); Monocytes Percent Auto 8.4 % (2-11); Neutrophils Absolute Auto 1.8 x10*3/uL (2.0-8.3); Neutrophils Percent Auto 46.1 % (45-73); Platelet Count 153 X10*3/uL (160-400); Red Blood Count 4.65 X10*6/uL (4.60-5.80); Red Cell Distribution Width 12.7 % (11.0-16.0); White Blood Count 3.8 X10*3/uL (4.8-10.8)
--- NOTE | 2021-05-10 10:39 | PC.NURSE ---
this rn called [facility] ) and spoke to jacob groves rn who states that pt has been having increased confusion and aggression. pt amb (i) gait steady, gait slightly unsteady at times. s/p fall on 05/04. this rn also spoke with marva (dns at [facility]) who states that pt had seen neurolgy on 04/04/21 and an eeg and ct scan was ordered to r/o seizures. pt s/p fall on 05/04 pt had denied hitting head/loc. pt was npo prior to ct scan this am. pt last dose of aspiring 325mg po was taken on 05/09/[address] flowers is aware.
[2021-05-10 10:49] LABS: INTERNATIONAL NORM RATIO 1.1 (0.9-1.1); Prothrombin Time 12.9 SEC (9.9-13.0)
[2021-05-10 10:53] LABS: Anion Gap 12 (12-20); Blood Urea Nitrogen 10 mg/dL (9-16); Calcium 9.2 mg/dL (8.4-10.2); Carbon Dioxide 28 mmol/L (22-29); Chloride 104 mmol/L (96-108); Estimated Glomerular Filt Rate > 60; Glucose Random 86 mg/dL (60-115); Potassium 4.4 mmol/L (3.3-5.1); Sodium 140 mmol/L (135-145)
[2021-05-10 11:00] LABS: Troponin-I High Sensitivity < 3.5 ng/L (<3.5-35.0)
[2021-05-10 11:34] LABS: Appearance Urine CLEAR; Color Urine YELLOW; Glucose Urine UA NEG (NEG); Leukocyte Esterase Urine NEG (NEG); Nitrite Urine NEG (NEG); Specific Gravity - Urine <= 1.005 (1.005-1.025); Urine Blood NEG (NEG); Urine Ketones NEG (NEG); Urine Protein NEG (NEG-TRACE)
[2021-05-10 11:41] LABS: COVID-19 Test Negative (Negative); IDNOW Serial# 55D5AD1C
--- NOTE | 2021-05-10 11:45 | PC.NURSE ---
@ 1145AM DR FLORES REQUESTS CALL OUT TO [facility] PT TX LINE FOR NEUROSURGERY JACOBO ANSWERS, TAKES PT INF THEN ASKS TO SPEAK WITH DR MARK FLORES TAKES OVER CALL RIGHT AWAY
[2021-05-10 11:49] LABS: Amphetamine Screen Urine Not Detected (Not Detect); Barbiturates, Urine Not Detected (Not Detect); Benzodiazepines Screen Urine Not Detected (Not Detect); Cannabinoid Screen Urine Not Detected (Not Detect); Cocaine Screen Urine Not Detected (Not Detect); Fentanyl, urine Not Detected (Not Detect); Opiate Screen Urine Not Detected (Not Detect); Phencyclidine Screen Urine Not Detected (Not Detect)
--- NOTE | 2021-05-10 11:55 | PC.NURSE ---
JACOBO FROM [facility] PT TX LINE CALLS AND ASKS TO SPEAK WITH DR FLORES @ THIS TIME DR FLORES TAKES OVER CALL RIGHT AWAY
--- NOTE | 2021-05-10 12:02 | PC.NURSE ---
LEXIS FROM [facility] PT TX LINECALL AND ASKS TO SPEAK WITH DR FLORES @ THIS TIME DR FLORES TAKES OVER CALL RIGHT AWAY
[2021-05-10] MEDS: Tranexamic Acid 1,000 MG/10 ML VIAL 650 MG IV (12:56)
--- NOTE | 2021-05-10 13:43 | PC.NURSE ---
rn to rn given to ronna at [facility] facility. pt aware of plan of care for transfer to facility via ambulance. pt is asymptomatic. amb (i) gait steady.
[2021-05-10 13:54] LABS: RBC Urine 0 /HPF (0); WBC Urine 0 /HPF (0-4)
[2021-05-10 14:16] LABS: Partial Thromboplastin Time 34.5 SEC (24.1-38.0)
[2021-05-10 14:20] LABS: Ethanol < 10 mg/dL
--- NOTE | 2021-05-10 19:31 | PC.NURSE ---
[facility] contacted to be made aware of transport back to facility. patient in no distress on departure, ambulatory throughout care of patient. patient mildly confused about situation, but easily redirectable. patient able to move all extremities without issue, no facial drop, eyes equal and reactive on departure. all belongings with patient at departure
== END 2021-05-10 19:34 | disposition skilled nursing facility (03) ==
PROVIDERS: Emergency Provider Emergency Medicine; PCP Hospitalist
DX: I62.00 Nontraumatic subdural hemorrhage, unspecified (principal); G40.909 Epilepsy, unspecified, not intractable, without status epilepticus; Z87.820 Personal history of traumatic brain injury; Z20.822 Contact with and (suspected) exposure to COVID-19
CPT/HCPCS: 36415; 80048; 80307; 81001; 82077; 82947; 84484; 85025; 85610; 85730; 87635; 93005; 96361; 96374; 99285

== ENCOUNTER 2021-06-13 18:26 | Emergency (ER) | payer MEDICAID, SELFPAY ==
--- NOTE | ~2021-06-13 | CT_ITS ---
EXAMINATION: CT HEAD WITHOUT CONTRAST CT CERVICAL SPINE WITHOUT CONTRAST CLINICAL INFORMATION: Fall. Head strike. COMPARISON: CT head from 05/10/2021. TECHNIQUE: Contiguous axial imaging was performed from the skull base to vertex without intravenous administration of contrast. Contiguous axial imaging was performed from the upper chest through the skull base without intravenous administration of contrast. Coronal and sagittal reformats were obtained at the acquisition workstation. This CT examination was performed using dose optimization techniques as appropriate, variously including the following: *Automated exposure control. *Adjustment of mA and/or kV according to patient size (this includes techniques or standardized protocols for targeted exams where dose is matched to indication/reason for exam; i.e. extremities or head). *Use of iterative reconstruction technique. DLP: 1227 mGy-cm FINDINGS: Head: Redemonstrated left hemispheric subdural hematoma with internal septations. The majority of the blood products within this collection have decreased in attenuation compared to exam from 05/10/2021. Hematoma now measures up to 2.7 cm in depth (previously 2 cm). The mixed attenuating outer blood products remain age indeterminate at this time; however, there heterogeneity and apparent septation formation suggests an ongoing chronic process. Along with the mild increase in size of this collection compared to 05/10/2021, there is now 0.8 cm rightward midline shift (previously 0.6 cm. Partial effacement of the left lateral ventricle. Stable size of the right lateral and third ventricles without evidence of obstructive hydrocephalus. Interval decrease in size of a now trace right-sided subdural collection along the posterior vertex (0.1 cm in depth). Chronic encephalomalacia of the right temporal lobe and bilateral cerebellar hemispheres. Chronic lacunar infarcts of the caudate nuclei. No evidence of additional acute intracranial hemorrhagic products. No acute soft tissue or osseous abnormalities. Mild mucosal thickening of the paranasal sinuses. The mastoid air cells and middle ear cavities are clear. Cervical Spine: The atlantooccipital and atlantoaxial articulations remain well aligned. Straightening of the normal cervical lordosis. Otherwise, there is anatomic alignment of the vertebral bodies and posterior elements. No evidence of acute fracture or subluxation. The vertebral body heights are maintained. Advanced degenerative disc disease from C4-C7. Moderate degenerative disc disease from C2-C4. Associated disc/osteophyte complex formation. Facet and uncovertebral joint arthropathy leads to osseous encroachment on the neural foramina from C3-C7. There is no prevertebral soft tissue swelling. The thyroid gland and remaining cervical soft tissues are normal in appearance. The lung apices demonstrate no abnormalities. CT/CT cervical spine wo con IMPRESSION: 1. Redemonstrated large left hemispheric subdural hematoma with internal septations. The blood products within this collection have overall decreased in attenuation compared to exam from 05/10/2021. While there is no demonstrated overt acute intracranial hemorrhage, there remains scattered regions of hyperattenuation within loculations of this left hemispheric collection suggestive of multiaged breakdown of blood products. The collection has partially increased in size compared to 05/10/2021 with associated increased mass effect and left cerebral hemisphere. Given the overall degree of generalized cerebral volume loss, there is partial effacement of the left lateral ventricle and 0.8 cm rightward midline shift but no evidence of obstructive hydrocephalus at this time. Continued follow-up of this subdural hematoma is recommended to exclude the possibility of progressive enlargement. 2. Chronic encephalomalacia of the right temporal lobe and bilateral cerebellar hemispheres. 3. No evidence of acute fracture or traumatic dislocation of the cervical spine. Moderate multilevel degenerative spondyloarthropathy of the cervical spine.
--- NOTE | 2021-06-13 18:43 | ED_ITS ---
HPI - Fall General Chief Complaint: Failure to Thrive Stated Complaint: FALL OUT OF W/C @SNF W/HEAD STRIKE,-CCOLLAR PER EM Time Seen by Provider: 06/13/21 19:28 Source: patient and EMS Mode of arrival: EMS Limitations: altered mental status History of Present Illness HPI Narrative: 60-year-old male presents via EMS from a prison facility for a fall with head strike. Patient was being transported from wheelchair to bed, fell and hit his head on the ground. No reported loss of consciousness. Patient has a past history of subdural bleed on 05/10/2021. complaint: fall Onset (ago): hour(s) (Hours prior to arrival) Fall from: standing Fall witnessed: yes, by living facility staff Place fall occurred: long term/SNF Loss of consciousness: none Prolonged down time: no Symptoms prior to fall: none Context: tripped/slipped Location of injury: head Severity: mild Severity scale (1-10): 1 Associated symptoms (after fall): denies Related Data Previous Rx's Medication Instructions Recorded methylprednisolone 4 mg tablet See Rx Instructions .ROUTE 05/10/21 (Medrol) .COMPLEX #21 tab tranexamic acid 650 mg tablet 650 mg PO BID 21 Days #42 tab 05/10/21 Allergies Allergy/AdvReac Type Severity Reaction Status Date / Time No Known Allergies Allergy Unverified 11/18/19 19:51 [No Known Allergies*] Review of Systems Review of Systems: Yes Unobtainable due to mental status PMFSH Past Medical History Attestation statement: The following information was validated with the patient. Source: old records reviewed Medical History Anoxic brain injury Epilepsy Lacunar infarction Subdural hematoma Social History Social History Alcohol intake: never Patient Tobacco Use Status: Never used Tobacco Advance Directives: No Advance Directives Information Provided: No Physical Exam Vital Signs: Vital Signs: Last Vital Signs Temp 98.2 F 06/13/21 20:29 Pulse 87 06/13/21 20:29 Resp 21 H 06/13/21 20:29 BP 143/91 H 06/13/21 20:29 Pulse Ox 95 06/13/21 20:29 BMI result Body Mass Index 31.4 Appearance: Alert. Oriented to self. No acute distress. Eyes: Pupils equal, round and reactive to light. ENT: Pharynx normal. Neck: Normal inspection. Neck supple. CVS: Normal heart rate and rhythm. Pulses normal. Respiratory: No respiratory distress. Breath sounds normal. Abdomen: Soft and nontender. Skin: Skin warm and dry. Normal skin color. Normal skin turgor. Extremities: No lower extremity edema. Right-sided strength 3/5 versus left- sided 5/5. Moves all extremities as directed. Neuro: No motor deficit. No sensory deficit. Cranial nerves 2-12 intact. Course Course Course Narrative: 60-year-old male presents via EMS from prison facility for head injury after a fall while transferring from wheelchair to bed. Patient has a known history of TBI, history of anoxic brain injury, left hip replacement, epilepsy, history of metabolic encephalopathy, history of cerebral infarction. Patient is able to follow simple commands. Does not know what the date is, where he is, believes it is 1989, does not know who the president is. He has right-sided weakness strength 3/5 versus 5/5 to the left side. GCS 14. Patient is unable to complete the NIH stroke scale as he is not able to follow directions appropriately. Order for CT scan of head and cervical spine. Labs, EKG pending. 19:34 audio visual technician called this [employer] for question of subdural bleed. 19:46 this CASINO ACCOUNTANT called out to [facility] to speak to reading radiologist. left subdural present since May. No acute findings at this time. 20:15 DR Armenta review discharge and CT scan findings. No acute findings noted. Plan is to DC to prison facility. 20:54 discussion with [facility] staff, patient's baseline is consistent with my findings of his physical exam. Plan is to DC to prison facili ty. MDM - Fall MDM Narrative Medical decision making narrative: Subdural, CVA Differential Diagnosis Differential diagnosis: Likely fracture and concussion without loss of consciousness Medical Records Attestation: I reviewed the patient's medical records. Lab Data Attestation: I reviewed the patient's lab results. Result diagrams: 06/13/21 19:40 06/13/21 19:40 Labs: Lab Results 06/13/21 06/13/21 06/13/21 Range/Units 19:40 19:40 19:40 WBC 6.0 (4.8-10.8) X10*3/uL RBC 4.91 (4.60-5.80) X10*6/uL Hgb 14.0 (14.0-18.0) g/dl Hct 41.8 L (42.0-52.0) % MCV 85.1 (80.0-98.0) fL MCH 28.5 (27.0-33.0) pg MCHC 33.5 (31.0-36.0) g/dl RDW 13.0 (11.0-16.0) % Plt Count 212 D (160-400) X10*3/uL MPV 8.7 L (9.4-12.4) fL Immature Gran % (Auto) 0.2 (0.0-0.4) % Neut % (Auto) 47.3 (45-73) % Lymph % (Auto) 38.4 (20-40) % [place] % (Auto) 11.6 H (2-11) % Eos % (Auto) 2.2 (0-4) % Baso % (Auto) 0.3 (0-2) % Lymph # (Auto) 2.3 (1.2-4.9) X10*3/uL [place] # (Auto) 0.7 (0.1-1.2) X10*3/uL Eos # (Auto) 0.1 (0.0-0.4) X10*3/uL Baso # (Auto) 0.0 (0.0-0.2) X10*3/uL Abs Immat Gran (auto) 0.01 (0.00-0.03) X10*3/uL Absolute Neuts (auto) 2.8 (2.0-8.3) x10*3/uL Absolute Nucleated RBC 0.000 (0.0-0.012) X10*3/uL Nucleated RBC % (auto) 0.0 (0.0-0.2) /100WBC PT 11.9 (9.9-13.0) SEC INR 1.0 (0.9-1.1) APTT 32.8 (24.1-38.0) SEC Troponin I High Sens < 3.5 (<3.5-35.0) ng/L Imaging Data CT head cervical spine: Attestation: I personally reviewed and interpreted this imaging study as follows: Radiologist's impression: FINDINGS: Head: Redemonstrated left hemispheric subdural hematoma with internal septations. The majority of the blood products within this collection have decreased in attenuation compared to exam from 05/10/2021. Hematoma now measures up to 2.7 cm in depth (previously 2 cm). The mixed attenuating outer blood products remain age indeterminate at this time; however, there heterogeneity and apparent septation formation suggests an ongoing chronic process. Along with the mild increase in size of this collection compared to 05/10/2021, there is now 0.8 cm rightward midline shift (previously 0.6 cm. Partial effacement of the left lateral ventricle. Stable size of the right lateral and third ventricles without evidence of obstructive hydrocephalus. Interval decrease in size of a now trace right-sided subdural collection along the posterior vertex (0.1 cm in depth). Chronic encephalomalacia of the right temporal lobe and bilateral cerebellar hemispheres. Chronic lacunar infarcts of the caudate nuclei. No evidence of additional acute intracranial hemorrhagic products. No acute soft tissue or osseous abnormalities. Mild mucosal thickening of the paranasal sinuses. The mastoid air cells and middle ear cavities are clear. Cervical Spine: The atlantooccipital and atlantoaxial articulations remain well aligned. Straightening of the normal cervical lordosis. Otherwise, there is anatomic alignment of the vertebral bodies and posterior elements. No evidence of acute fracture or subluxation. The vertebral body heights are maintained. Advanced degenerative disc disease from C4-C7. Moderate degenerative disc disease from C2-C4. Associated disc/osteophyte complex formation. Facet and uncovertebral joint arthropathy leads to osseous encroachment on the neural foramina from C3-C7. There is no prevertebral soft tissue swelling. The thyroid gland and remaining cervical soft tissues are normal in appearance. The lung apices demonstrate no abnormalities. CT/CT head/brain wo con IMPRESSION: 1. Redemonstrated large left hemispheric subdural hematoma with internal septations. The blood products within this collection have overall decreased in attenuation compared to exam from 05/10/2021. ? While there is no demonstrated overt acute intracranial hemorrhage, there remains scattered regions of hyperattenuation within loculations of this left hemispheric collection suggestive of multiaged breakdown of blood products. The collection has partially increased in size compared to 05/10/2021 with associated increased mass effect and left cerebral hemisphere. ? Given the overall degree of generalized cerebral volume loss, there is partial effacement of the left lateral ventricle and 0.8 cm rightward midline shift but no evidence of obstructive hydrocephalus at this time. ? Continued follow-up of this subdural hematoma is recommended to exclude the possibility of progressive enlargement. ? 2. Chronic encephalomalacia of the right temporal lobe and bilateral cerebellar hemispheres. ? 3. No evidence of acute fracture or traumatic dislocation of the cervical spine. Moderate multilevel degenerative spondyloarthropathy of the cervical spine. ? ? ECG Data Attestation: I personally reviewed and interpreted this ECG as follows: ECG interpretation date: 06/13/21 ECG interpretation time: 19:40 Interpretation: Vent. rate 82 BPM WI interval 188 ms QRS duration 78 ms QT/QTc 342/399 ms P-R-T axes 60 65 47 Normal sinus rhythm Normal ECG When compared with ECG of 10-MAY-2021 10:07, No significant change was found Discharge Plan Discharge Clinical Impression: Subdural hematoma, Fall Patient Disposition: Xfer [facility] Transfer Details: [facility] Instructions: Intracranial Hematoma (ED), Cognitive Disorders after Traumatic Brain Injury (ED) Additional Instructions: You were evaluated for injuries sustained from a fall. CT of the head and neck do not show any acute findings. There are chronic findings of a subdural hematoma that was 1st noted on 05/10/2021. Although there are no significant acute findings with a CT scan today, it is highly recommended that patient have a repeat CT scan to monitor for progressive enlargement. Thank you for choosing this emergency department for evaluation. Please follow-up with primary care physician as needed. Return to the emergency depar tment for any new, concerning, or worsening symptoms. Prescriptions: No Action methylprednisolone [Medrol] 4 mg tablet See Rx Instructions .ROUTE .COMPLEX Qty: 21 0RF Rx Instructions: Day 1: 24 mg on day 1 administered as 8 mg (2 tablets) before breakfast, 4 mg (1 tablet) after lunch, 4 mg (1 tablet) after supper, and 8 mg (2 tablets) at bedtime or 24 mg (6 tablets) as a single dose or divided into 2 or 3 doses upon initiation (regardless of time of day). Day 2: 20 mg on day 2 administered as 4 mg (1 tablet) before breakfast, 4 mg (1 tablet) after lunch, 4 mg (1 tablet) after supper, and 8 mg (2 tablets) at bedtime. Day 3: 16 mg on day 3 administered as 4 mg (1 tablet) before breakfast, 4 mg (1 tablet) after lunch, 4 mg (1 tablet) after supper, and 4 mg (1 tablet) at bedtime. Day 4: 12 mg on day 4 administered as 4 mg (1 tablet) before breakfast, 4 mg (1 tablet) after lunch, and 4 mg (1 tablet) at bedtime. Day 5: 8 mg on day 5 administered as 4 mg (1 tablet) before breakfast and 4 mg (1 tablet) at bedtime. Day 6: 4 mg on day 6 administered as 4 mg (1 tablet) before breakfast. tranexamic acid 650 mg tablet 650 mg PO BID 21 Days Qty: 42 0RF
[2021-06-13 18:46] VITALS: BP 126/78; BP 137/87; PULSE 88; PULSE 90; RESP 16; TEMP 36.8; O2SAT 94; O2SAT 96; BMI 31.4
--- NOTE | 2021-06-13 19:35 | ECG_ITS ---
Test Reason : BLEED Blood Pressure : / mmHG Vent. Rate : 082 BPM Atrial Rate : 082 BPM P-R Int : 188 ms QRS Dur : 078 ms QT Int : 342 ms P-R-T Axes : 060 065 047 degrees QTc Int : 399 ms Normal sinus rhythm Normal ECG When compared with ECG of 10-MAY-2021 10:07, No significant change was found Referred By: Valerie Bell Electronically Signed By:Allan Carter
[2021-06-13 19:44] LABS: MANUAL DIFF FLAG NO
[2021-06-13 19:54] LABS: Basophils Percent Auto 0.3 % (0-2); Eosinophils Absolute Auto 0.1 X10*3/uL (0.0-0.4); Eosinophils Percent Auto 2.2 % (0-4); Hematocrit 41.8 % (42.0-52.0); Imm Gran Abs Auto 0.01 X10*3/uL (0.00-0.03); Imm Gran Pct Auto 0.2 % (0.0-0.4); Lymphocytes Absolute Auto 2.3 X10*3/uL (1.2-4.9); Lymphocytes Percent Auto 38.4 % (20-40); Mean Corpuscular HGB Conc 33.5 g/dl (31.0-36.0); Mean Corpuscular Hemoglobin 28.5 pg (27.0-33.0); Mean Corpuscular Volume 85.1 fL (80.0-98.0); Mean Platelet Volume 8.7 fL (9.4-12.4); Monocytes Absolute Auto 0.7 X10*3/uL (0.1-1.2); Monocytes Percent Auto 11.6 % (2-11); Neutrophils Absolute Auto 2.8 x10*3/uL (2.0-8.3); Neutrophils Percent Auto 47.3 % (45-73); Platelet Count 212 X10*3/uL (160-400); Red Blood Count 4.91 X10*6/uL (4.60-5.80)
[2021-06-13 20:00] LABS: Prothrombin Time 11.9 SEC (9.9-13.0)
[2021-06-13 20:03] LABS: Partial Thromboplastin Time 32.8 SEC (24.1-38.0)
[2021-06-13 20:10] LABS: Troponin-I High Sensitivity < 3.5 ng/L (<3.5-35.0)
[2021-06-13 20:29] VITALS: BP 143/91; PULSE 87; RESP 21; TEMP 36.8; O2SAT 95
--- NOTE | 2021-06-13 21:50 | PC.NURSE ---
Report given to AMRITA Hines at [facility]. Patient awaiting ambulance back to facility.
[2021-06-13 23:10] VITALS: BP 135/88; PULSE 88; RESP 20; O2SAT 98
== END 2021-06-13 23:14 | disposition skilled nursing facility (03) ==
PROVIDERS: Nurse Practitioner Family; Emergency Provider Emergency Medicine; PCP Hospitalist
DX: S06.5X0A Traumatic subdural hemorrhage without loss of consciousness, initial encounter (principal); S00.01XA Abrasion of scalp, initial encounter; M54.2 Cervicalgia; G44.309 Post-traumatic headache, unspecified, not intractable; W05.0XXA Fall from non-moving wheelchair, initial encounter; Y93.9 Activity, unspecified; Y92.129 Unspecified place in nursing home as the place of occurrence of the external cause; Y99.9 Unspecified external cause status; Z79.899 Other long term (current) drug therapy
CPT/HCPCS: 36415; 70450; 72125; 84484; 85025; 85610; 85730; 93005; 99284

== ENCOUNTER 2021-08-01 11:08 | Emergency (ER) | payer MEDICAID, SELFPAY ==
--- NOTE | ~2021-08-01 | CT_ITS ---
EXAMINATION: CT HEAD WITHOUT CONTRAST CT CERVICAL SPINE WITHOUT CONTRAST CLINICAL INFORMATION: Fall. Recent subdural hematoma repair. COMPARISON: CT head and cervical spine from 06/13/2021. TECHNIQUE: Contiguous axial imaging was performed from the skull base to vertex without intravenous administration of contrast. Contiguous axial imaging was performed from the upper chest through the skull base without intravenous administration of contrast. Coronal and sagittal reformats were obtained at the acquisition workstation. This CT examination was performed using dose optimization techniques as appropriate, variously including the following: *Automated exposure control. *Adjustment of mA and/or kV according to patient size (this includes techniques or standardized protocols for targeted exams where dose is matched to indication/reason for exam; i.e. extremities or head). *Use of iterative reconstruction technique. DLP: 1203 mGy-cm FINDINGS: Head: Redemonstrated left hemispheric subdural hematoma with internal septations. The majority of the blood products within this collection have decreased in attenuation compared to exam from 06/13/2021. Hematoma now measures up to 1.8 cm in depth (previously 2.7 cm). Similar degree of mixed attenuating outer blood products with a degree of heterogeneity and apparent septation formation suggests an ongoing chronic process. Interval improvement in now minimal 0.2 cm rightward midline shift (previously 0.8 cm). Reexpansion of the left lateral ventricle. Otherwise, stable size of the right lateral and third ventricles without evidence of obstructive hydrocephalus. Interval mild increase in size of a small hypoattenuating right hemispheric, now measuring up to 0.5 cm in depth (previously 0.1 cm). Changes of bilateral middle meningeal artery embolization. A lacunar infarct of the left lentiform nucleus/external capsule is new compared to exam from 06/13/2021. Chronic encephalomalacia of the right greater than left temporal lobes and bilateral cerebellar hemispheres. Chronic lacunar infarcts of the caudate nuclei. No evidence of additional acute intracranial hemorrhagic products. No acute soft tissue or osseous abnormalities. Mild mucosal thickening of the paranasal sinuses. The mastoid air cells and middle ear cavities are clear. Cervical Spine: The atlantooccipital and atlantoaxial articulations remain well aligned. Mild reversal the normal cervical lordosis centered on C4. Mild degenerative anterolisthesis of C3 on C4. Otherwise, there is anatomic alignment of the vertebral bodies and posterior elements. No evidence of acute fracture or subluxation. The vertebral body heights are maintained. Advanced degenerative disc disease from C4-C7. Moderate degenerative disc disease from C2-C4. Associated disc-osteophyte complex formation. Facet and uncovertebral joint arthropathy leads to osseous encroachment on the neural foramina from C3-C7. There is no prevertebral soft tissue swelling. There is a 0.4 cm calcification in the left thyroid lobe. There is a 0.8 cm hypoattenuating nodule in the right thyroid lobe (no follow-up imaging recommended). The remaining cervical soft tissues are normal in appearance. Chronic healed deformities of the lateral aspects of the left 2nd and 3rd ribs. The lung apices demonstrate no abnormalities. CT/CT cervical spine wo con IMPRESSION: 1. Redemonstrated prominent left hemispheric subdural hematoma with internal septations. The blood products within this collection have overall decreased in attenuation and size compared to exam from 06/13/2021. Decreased overall mass effect with minimal 0.2 cm residual rightward midline shift. Changes of prior bilateral middle meningeal artery embolization. 2. A lacunar infarct of the left lentiform nucleus/external capsule is new compared to exam from 06/13/2021. No evidence of additional acute intracranial hemorrhage or edematous territorial infarction. 3. Chronic encephalomalacia of the right greater than left temporal lobes, bilateral caudate nuclei, and bilateral cerebellar hemispheres. 4. No evidence of acute fracture or traumatic subluxation of the cervical spine. Moderate multilevel degenerative spondyloarthropathy of the cervical spine.
--- NOTE | ~2021-08-01 | XR_ITS ---
EXAMINATION: XR ELBOW, LEFT CLINICAL INFORMATION: Injury, fall. Laceration. COMPARISON: None TECHNIQUE: AP, lateral, and oblique views of the left elbow. FINDINGS: There is a posterior olecranon process there is soft tissue laceration gas but no radiopaque foreign body. No fracture or dislocation seen. The anterior and posterior fat pad sign is normal. XR/XR elbow LT 2V IMPRESSION: Posterior to olecranon process of the elbow there is soft tissue laceration with gas. No acute fracture or cortical abnormality seen. No joint effusion seen.
[2021-08-01 11:26] VITALS: BP 138/90; PULSE 82; O2SAT 96
[2021-08-01 11:27] VITALS: BP 134/83; PULSE 78; RESP 16; TEMP 36.4; O2SAT 96; BMI 25.0
--- NOTE | 2021-08-01 11:51 | PC.NURSE ---
Spoke with floor nurse Nini Mason sts that she thinks pt lac happened somewhere between 2pm and 7am. sts that when she came on shift, she was alerted by pt [facility] whit techs that the pt was bleeding and had two bandaids over the left elbow. Nurse does not believe it was a fall as pt had a 1:1 sitter assigned to him. Nini states pt was on 1:1 observation as he is a fall risk, and s/p subdural hematoma repair on 07/23/21, also stated pt had a meningeal artery injury as well. Information relayed to Kartik ROBIN
--- NOTE | 2021-08-01 12:57 | ED.WOUNDLAC ---
HPI - Wound/Laceration General Chief Complaint: Wound/Laceration Stated Complaint: L ELBOW LAC FROM SNF PER EMS Time Seen by Provider: 08/01/21 11:40 Source: EMS and other (Facility nurse) Mode of arrival: EMS Limitations: altered mental status History of Present Illness HPI narrative: Patient presents to the emergency department from the [facility] via EMS transport. Patient's nurse today noticed upon her shift arrival this morning the patient had 2 Band-Aids present to his left elbow. When the bandages were removed there is a laceration noted. It is unknown the exact cause of this laceration. She reports that the patient is currently on a 1-1 observation as he is a significant fall risk and recently had subdural hematoma and or meningeal artery repair at the end of July. It is unclear whether the patient had fallen, or how the laceration happened. Patient is altered at baseline he per the nurse, is unable to provide any history. Related Data Previous Rx's Medication Instructions Recorded methylprednisolone 4 mg tablet See Rx Instructions .ROUTE 05/10/21 (Medrol) .COMPLEX #21 tab tranexamic acid 650 mg tablet 650 mg PO BID 21 Days #42 tab 05/10/21 Allergies Allergy/AdvReac Type Severity Reaction Status Date / Time No Known Allergies Allergy Unverified 11/18/19 19:51 [No Known Allergies*] Review of Systems Review of Systems: Yes Unobtainable due to mental status PMFSH Past Medical History Attestation statement: The following information was validated with the patient. Source: old records reviewed Medical History Anoxic brain injury Epilepsy Lacunar infarction Subdural hematoma Social History Social History Alcohol intake: never Patient Tobacco Use Status: Never used Tobacco Advance Directives: No Advance Directives Information Provided: No Physical Exam Vital Signs: Vital Signs: Last Vital Signs Temp 98.7 F 08/01/21 17:14 Pulse 80 08/01/21 17:14 Resp 15 08/01/21 17:14 BP 144/75 H 08/01/21 17:14 Pulse Ox 96 08/01/21 17:14 BMI result Body Mass Index 25.0 Vital signs have been reviewed as normal and appeared to be correct. Blood pressure normal.? Heart rate normal.? Respiration rate normal. Temperature normal.? Oxygen saturation normal. Appearance: Alert.?Oriented to person only.. No acute distress.?Normal affect. Eyes: Pupils equal, round and reactive to light.?EOMi, No nystagmus. ENT: Pharynx normal.?? Neck: Normal inspection.? Neck supple.?? CVS: Heart sounds normal. Normal heart rate and rhythm.? Pulses normal.?? Respiratory: No respiratory distress.? Lung sounds clear to auscultation bilaterally?? Abdomen: Soft and non-tender. Normoactive bowel sounds. Skin: Skin warm and dry.? Normal skin color.? 2 cm laceration to left elbow, minimal active bleeding Extremities: No lower extremity edema.? Full AROM to left elbow. Neuro: Moves all extremities spontaneously. Sensation intact bilaterally.No focal neuro deficits. Ambulates with normal steady gait. Course Course Course Narrative: Patient is a 60-year-old male with a past medical history of CVA, diabetes mellitus, hypertension, hyperlipidemia, epilepsy, and anoxic brain injury, he is coming from a halfway facility for a laceration to his left elbow of unknown origin. Records obtained from [facility] indicate that he underwent an elective middle meningeal artery embolization on July 23 and was discharged on July 25. He has a prior history of a subdural hematoma from 05/10/2021. GCS 14, unable to complete NIH stroke scale as he is unable to completely follow directions appropriate, unable to obtain history from patient, therefore will obtain CT of the head and cervical spine to exclude new injury. Will obtain x-ray of the left elbow to exclude fracture dislocation, this will require suture repair. Patient with no acute complaints or reports of pain. Reevaluation(s) Reevaluation #1: Left elbow laceration repaired under aseptic technique, 2 sutures placed, patient tolerated procedure well. CT of the head and cervical spine are pending at this time. No acute neurological changes. Time: 13:00 Reevaluation #2: CT of the head reveals redemonstration of left hemispheric subdural hematoma, blood products within this collection have overall decreased in attenuation and size when compared to prior exam 06/13/2021, decreased overall mass effect. Cervical spine without acute fracture or traumatic subluxation. There is a lacunar infarct of the left lentiform nucleus/external capsule which is new in comparison to prior CT 06/13/2021, no evidence of acute intracranial hemorrhage or edematous territorial infarction. Patient with a history of prior CVA, it is unclear the onset of this infarct, discussed this case with ED attending Dr. Pimentel who agrees that patient would not be a candidate for tPA nonetheless, in most appropriate plan of care would be for patient to be discharged back to halfway facility, and follow-up with primary care provider. Patient cleared for discharge back to [facility]. Time: 16:03 [facility] - Wound/Laceration Medical Records Attestation: I reviewed the patient's medical records. Imaging Data xr elbow: Radiologist's impression: XR/XR elbow LT 2V IMPRESSION: Posterior to olecranon process of the elbow there is soft tissue laceration with gas. No acute fracture or cortical abnormality seen. No joint effusion seen. CT scan - head: Radiologist's impression: CT/CT head/brain wo con IMPRESSION: 1. Redemonstrated prominent left hemispheric subdural hematoma with internal septations. The blood products within this collection have overall decreased in attenuation and size compared to exam from 06/13/2021. Decreased overall mass effect with minimal 0.2 cm residual rightward midline shift. ? Changes of prior bilateral middle meningeal artery embolization. ? 2. A lacunar infarct of the left lentiform nucleus/external capsule is new compared to exam from 06/13/2021. No evidence of additional acute intracranial hemorrhage or edematous territorial infarction. ? 3. Chronic encephalomalacia of the right greater than left temporal lobes, bilateral caudate nuclei, and bilateral cerebellar hemispheres. ? 4. No evidence of acute fracture or traumatic subluxation of the cervical spine. Moderate multilevel degenerative spondyloarthropathy of the cervical spine. Procedures Laceration Laceration 1: Site: other (Left elbow) Side (If applicable): left Size (cm): 2 Description: linear Depth: simple, single layer Local Anesthetic: lidocaine 2% Amount of anesthesia used (mL): 2 Pre-repair: wound explored, irrigated extensively and deep structures intact Skin layer closed with: nylon Size (cm): 5-0 Number of sutures: 2 Technique: simple, interrupted Discharge Plan Discharge Clinical Impression: Laceration Patient Disposition: [facility] Transfer Details: [facility] Additional Instructions: Two sutures were placed to the left elbow, these will need to be removed in 10-14 days. Laceration should be re-evaluated by primary care provider within 1 week, monitor for signs of infection such as redness, swelling, drainage, reports of pain. As the nature of the laceration was unclear, a repeat CT of the head and cervical spine were obtained. Head CT reveals left subdural hematoma with blood collections having overall decreased. There is mention of a lacunar infarct in the left lentiform nucleus/external capsule that is new when compared to prior CT obtained 06/13/2021, with no evidence of acute intracranial hemorrhage or edematous territorial infarction. Patient should return back to the emergency department for any new or worsening symptoms or concerns. Prescriptions: No Action methylprednisolone [Medrol] 4 mg tablet See Rx Instructions .ROUTE .COMPLEX Qty: 21 0RF Rx Instructions: Day 1: 24 mg on day 1 administered as 8 mg (2 tablets) before breakfast, 4 mg (1 tablet) after lunch, 4 mg (1 tablet) after supper, and 8 mg (2 tablets) at bedtime or 24 mg (6 tablets) as a single dose or divided into 2 or 3 doses upon initiation (regardless of time of day). Day 2: 20 mg on day 2 administered as 4 mg (1 tablet) before breakfast, 4 mg (1 tablet) after lunch, 4 mg (1 tablet) after supper, and 8 mg (2 tablets) at bedtime. Day 3: 16 mg on day 3 administered as 4 mg (1 tablet) before breakfast, 4 mg (1 tablet) after lunch, 4 mg (1 tablet) after supper, and 4 mg (1 tablet) at bedtime. Day 4: 12 mg on day 4 administered as 4 mg (1 tablet) before breakfast, 4 mg (1 tablet) after lunch, and 4 mg (1 tablet) at bedtime. Day 5: 8 mg on day 5 administered as 4 mg (1 tablet) before breakfast and 4 mg (1 tablet) at bedtime. Day 6: 4 mg on day 6 administered as 4 mg (1 tablet) before breakfast. tranexamic acid 650 mg tablet 650 mg PO BID 21 Days Qty: 42 0RF
[2021-08-01] MEDS: Lidocaine HCl 2 % MPF 5 ML VIAL SUBCUT (13:03)
[2021-08-01 15:23] VITALS: BP 140/84; PULSE 76; RESP 16; TEMP 36.7; O2SAT 97
[2021-08-01 17:14] VITALS: BP 144/75; PULSE 80; RESP 15; TEMP 37.1; O2SAT 96
--- NOTE | 2021-08-01 20:45 | PC.NURSE ---
late entry: called report in to nurse Ray at [facility] - awaiting EMS for transport back to facility
== END 2021-08-01 20:29 | disposition skilled nursing facility (03) ==
PROVIDERS: Emergency Provider Emergency Medicine; PCP Hospitalist
DX: S51.012A Laceration without foreign body of left elbow, initial encounter (principal); S06.5X9D Traumatic subdural hemorrhage with loss of consciousness of unspecified duration, subsequent encounter; X58.XXXD Exposure to other specified factors, subsequent encounter; I10 Essential (primary) hypertension; E11.9 Type 2 diabetes mellitus without complications; G40.909 Epilepsy, unspecified, not intractable, without status epilepticus; Z86.73 Personal history of transient ischemic attack (TIA), and cerebral infarction without residual deficits; X58.XXXA Exposure to other specified factors, initial encounter; Y93.9 Activity, unspecified; Y92.9 Unspecified place or not applicable; Y99.9 Unspecified external cause status
CPT/HCPCS: 12001; 70450; 72125; 73070; 99282; 99283; 99284

== ENCOUNTER 2021-12-19 14:13 | Outpatient (REF) | payer MEDICAID, SELFPAY ==
--- NOTE | ~2021-12-19 | FL_ITS ---
EXAMINATION: XR BARIUM SWALLOW CLINICAL INFORMATION: Esophageal dysmotility. COMPARISON: None TECHNIQUE: Routine modified barium swallow was performed with consistencies of barium in presence of speech therapist under lateral fluoroscopy. FINDINGS: On the lateral view of the cervical spine, there are degenerative disc changes C4-C5, C5-C6 and C6-C7 disc levels with ventral spondylosis. No lytic or sclerotic process seen. Correlate with speech therapist for modified barium swallow findings. FLUOROSCOPY TIME: 1.5 minutes DOSE AREA PRODUCT: 1.027 uGy-m2 (microgray-meter squared) FL/FL barium swallow modified IMPRESSION: 1. Modified barium swallow performed with speech therapist. 2. Correlate with speech therapist for modified barium swallow findings.
--- NOTE | 2021-12-19 17:24 | MHC.SL.IMP ---
Date of Plan of Treatment: 12/19/21 Onset of Symptoms/Illness: 12/19/21 Date Treatment Started: 12/19/21 Admitting Diagnosis: METABOLIC ENCEPHALOPATHY, PRESENCE OF LEFT ARTIFICIAL HIP JOINT, ANOXIC BRAIN DAMAGE, NOT ELSEWHERE CLASSIFIED, TRAUMATIC SUBDURAL HEMORRHAGE WITHOUT LOSS OF CONSCIOUSNESS, SUBSEQUENT ENCOUNTER, OTHER SPECIFIED POSTPROCEDURAL STATES, POISONING BY OTHER OPIOIDS, ACCIDENTAL (UNINTENTIONAL), SEQUELA, PERSONAL HISTORY OF OTHER DISEASES OF THE RESPIRATORY SYSTEM, PERSONAL HISTORY OF PNEUMONIA (RECURRENT), EPILEPSY, UNSPECIFIED, NOT INTRACTABLE, WITHOUT STATUS EPILEPTICUS, OTHER SPECIFIED DISORDERS OF BRAIN, ENCEPHALOPATHY, UNSPECIFIED, COCAINE ABUSE, IN REMISSION, OPIOID ABUSE, IN REMISSION, ESSENTIAL (PRIMARY) HYPERTENSION, TYPE 2 DIABETES MELLITUS WITHOUT COMPLICATIONS, OTHER HYPERLIPIDEMIA, THROMBOCYTOPENIA, UNSPECIFIED, OTHER CEREBRAL INFARCTION DUE TO OCCLUSION OR STENOSIS OF SMALL ARTERY Primary Speech & Language Diagnosis: R13.11 Oral Phase Dysphagia Reason for Today's Visit: 16623 Modified Barium Swallow Study Pre-evaluation Dietary Consistencies: Grnd/Mech Altered (NDD2) Pre-evaluation Liquid Consistency: Thin Pre-evaluation Medication Administration: UNKNOWN Medical History: [place] Modified Barium Swallow Study Fluoroscopic Evaluation of Swallowing Function CPT Code 12682 Evaluation Year: 2021 Reason for Study: Difficulty swallowing Referring Physician: Vladimir Hollins DO Evaluating Clinician: Em Murphy MA, [facility] Study Number: 1 Patient Name: Lester Stringer Status: Outpatient, Wheelchair Age: 61 Gender: Male MEDICAL HISTORY: Year of Onset or Diagnosis: 2021 Comorbidities: METABOLIC ENCEPHALOPATHY, PRESENCE OF LEFT ARTIFICIAL HIP JOINT, ANOXIC BRAIN DAMAGE, NOT ELSEWHERE CLASSIFIED, TRAUMATIC SUBDURAL HEMORRHAGE WITHOUT LOSS OF CONSCIOUSNESS, SUBSEQUENT ENCOUNTER, OTHER SPECIFIED POSTPROCEDURAL STATES, POISONING BY OTHER OPIOIDS, ACCIDENTAL (UNINTENTIONAL), SEQUELA, PERSONAL HISTORY OF OTHER DISEASES OF THE RESPIRATORY SYSTEM, PERSONAL HISTORY OF PNEUMONIA (RECURRENT), EPILEPSY, UNSPECIFIED, NOT INTRACTABLE, WITHOUT STATUS EPILEPTICUS, OTHER SPECIFIED DISORDERS OF BRAIN, ENCEPHALOPATHY, UNSPECIFIED, COCAINE ABUSE, IN REMISSION, OPIOID ABUSE, IN REMISSION, ESSENTIAL (PRIMARY) HYPERTENSION, TYPE 2 DIABETES MELLITUS WITHOUT COMPLICATIONS, OTHER HYPERLIPIDEMIA, THROMBOCYTOPENIA, UNSPECIFIED, OTHER CEREBRAL INFARCTION DUE TO OCCLUSION OR STENOSIS OF SMALL ARTERY Current (pre-evaluation) Intake/Diet: Route: PO Diet Grade: Mechanical Soft Liquid Consistencies: Thin Pre-Study Functional Oral Intake Scale (FOIS): 5- Total oral intake of multiple consistencies requiring special preparation Pain: None reported at time of study SUBJECTIVE: Pt is a 61 year old male referred for a modified barium swallow study (MBSS) by Vladimir Hollins DO. Pt comes from [facility] and his past medical history is significant for CVA, diabetes mellitus, hypertension, hyperlipidemia, epilepsy, and anoxic brain injury. Per chart review, pt reportedly underwent an elective middle meningeal artery embolization on July 23 and discharged on July 25 from [facility]. He had prior history of subdural hematoma from 05/10/2021. Pt was seen in the ER at [facility] for a laceration to his elbow in August 2021 and for a fall with head strike in June 2021. Pt initially denied having any difficulty swallowing. Upon further questioning however, pt revealed he ?sometimes coughs when drinking liquids.? Pt denied odynophagia and denied experiencing globus sensation. Pt stated he was not sure if his food is altered in any way at his living facility, but believes he was drinking thickened liquids at one point. Staff who had accompanied pt to this exam reported pt was eating a moist and minced diet with thin liquids at [facility]. Head CT 08/01/21: ?1. Redemonstrated prominent left hemispheric subdural hematoma with internal septations. The blood products within this collection have overall decreased in attenuation and size compared to exam from 06/13/2021. Decreased overall mass effect with minimal 0.2 cm residual rightward midline shift. Changes of prior bilateral middle meningeal artery embolization. 2. A lacunar infarct of the left lentiform nucleus/external capsule is new compared to exam from 06/13/2021. No evidence of additional acute intracranial hemorrhage or edematous territorial infarction. 3. Chronic encephalomalacia of the right greater than left temporal lobes, bilateral caudate nuclei, and bilateral cerebellar hemispheres. 4. No evidence of acute fracture or traumatic subluxation of the cervical spine. Moderate multilevel degenerative spondyloarthropathy of the cervical spine.? Oral Motor Exam Facial Symmetry: Symmetrical Mouth Occlusion: Normal Oral-Facial Teeth Characteristics: Edentulous Oral-Facial Teeth Miscellaneous Observation: Pt reports he does not have dentures. Tongue Size: Normal Tongue Excursion Description: Normal Tongue Range of Movement Description: Reduced Tongue Speed of Movement Description: Reduced Is patient able to manage secretions?: Yes Food and Liquid Trials: Oral Impairment: Lip Closure: Did not test Oral Impairment: Tongue Control During Bolus Hold: 1=Escape to lateral buccal cavity/floor of mouth (FOM) Oral Impairment: Bolus Preparation/Mastication: 2=Disorganized chewing/mashing with solid pieces of bolus Oral Impairment: Bolus Transport/Lingual Motion: 2=Slowed tongue motion Oral Impairment: Oral Residue: 1=Trace residue lining oral structures Oral Impairment:Initiation of Pharyngeal Swallow: 3=Bolus head in pyriforms Pharyngeal Impairment: Soft Palate Elevation: 0=No bolus between soft palate (SP)/pharyngeal wall (PW) Pharyngeal Impairment: Laryngeal Elevation: 1=Partial thyroid cartilage/arytenoids to epiglottic petiole movement Pharyngeal Impairment: Anterior Hyoid Excursion: 1=Partial anterior movement Pharyngeal Impairment: Epiglottic Movement: 0=Complete inversion Pharyngeal Impairment: Laryngeal Vestibular Closure:: 0=Complete: no air/contrast in laryngeal vestibule Pharyngeal Impairment: Pharyngeal Stripping Wave: 1=Present: diminished Pharyngeal Impairment: Pharyngeal Contraction: Did not test Pharyngeal Impairment: Pharyngoesophageal Segment Openin=Complete distension and complete duration: no obstruction of flow Pharyngeal Impairment: Tongue Base (TB) Retraction: 2=Narrow column of contrast/air between TB and posterior PW Pharyngeal Impairment: Pharyngeal Residue: 1=Trace residue within or on pharyngeal structures Pharyngeal Impairment: Esophageal Clearance Upright Position: Did not test Impressions and Recommendations OBJECTIVE: Time-out: performed at 02:45 Evaluation Start: 02:30; Stop: 2:33 Patient Positioning: Seated 70-90 degrees Viewing Planes: LATERAL ONLY Contrast: MBSImP? Standardized Protocol using commercially prepared, standardized Barium viscosities, including: Varibar? THIN LIQUID (40% w/v, <15 cps) , Varibar? NECTAR (40% w/v, <150-450 cps) , Varibar? THIN HONEY (40% w/v, <800-1800 cps) , 1/2 Shortbread Cookie (1 x1 x.25 ) MBSImP ID: [id number] MBSImP Results: Lip closure for intraoral bolus containment could not be assessed due to logistical reasons not related to physiologic impairment. Tongue control during bolus hold allowed bolus escape to the lateral buccal cavity/floor of mouth. Bolus preparation and mastication demonstrated disorganized chewing/mashing with solid pieces of the bolus unchewed. Bolus transport/lingual motion was with slowed tongue motion. Oral residue was a trace, lining oral structures. Initiation of the pharyngeal swallow occurred when the bolus head was in the pyriform sinuses. Soft palate elevation resulted in no bolus between the soft palate and the pharyngeal wall. Laryngeal elevation was decreased, with partial superior movement of the thyroid cartilage/partial approximation of the arytenoids to the epiglottic petiole. Anterior hyoid excursion demonstrated partial anterior movement. Epiglottic movement resulted in complete inversion. Laryngeal vestibular closure was complete, as indicated by no air or contrast within the laryngeal vestibule at the height of the swallow. Pharyngeal stripping wave was present, but diminished. Pharyngeal contraction could not be determined due to logistical reasons not related to physiologic impairment. Pharyngoesophageal segment opening was completely distended for complete duration with no obstruction of bolus flow. Tongue base retraction allowed a narrow column of contrast or air between the retracted tongue base and the posterior pharyngeal wall. Pharyngeal residue was a trace within or on pharyngeal structures. Esophageal clearance in the upright position could not be assessed due to logistical reasons not related to physiologic impairment. Oral Impairment Score: 8 (absence of score, component 1) Pharyngeal Impairment Score: 5 (absence of score, component 13) Esophageal Impairment Score: --- (absence of score, component 17) Laryngeal Penetration and Aspiration: Neither penetration nor aspiration was observed in today's study with Cookie, Honey-thick, Mimbres-thick, Thin. ASSESSMENT: This exam was conducted by a multidisciplinary team which included a speech pathologist, radiologist, and interventional radiology tech. Pt was seated upright at 90 degrees in a chair for lateral view only. Pt trialed the following liquid and solid consistencies: honey thick liquid barium by teaspoon, nectar thick liquid barium by cup, thin liquid barium by cup (individual sips and chain sips), pureed solid (mixture applesauce with barium paste), ground solid (mixture chicken salad with barium paste), and regular solid (Shea Doone cookie coated with barium paste). Oral phase was mildly slow and prolonged. Pt was able to mash and chew solid consistencies. Mastication was prolonged and disorganized with bites of the shortbread cookie. Pt demonstrated improved timeliness and efficiency of chewing with ground consistency. Posterior lingual motion for the transport of bolus was slowed. There was trace lingual residue with both liquid and solids which subsequently cleared with a dry swallow. Pharyngeal swallow trigger was delayed, initiated as bolus head reached pyriform sinuses. There was no nasopharyngeal reflux. Incomplete laryngeal elevation with incomplete anterior hyoid excursion. Epiglottic inversion was complete. Complete laryngeal vestibular closure. There was no evidence of aspiration or penetration with the intake of solids and liquids of various consistencies during this exam. There was trace residue on the tongue base and in the valleculae and pyriform sinuses with both solids and liquids, considered to be within functional limits. Residuals completely cleared with subsequent dry swallow. There was no obstruction of flow through the pharyngoesophageal segment opening. Liquid Intake Recommendation: Thin Liquid Intake Strategies: Small Sips Dietary Recommendations: Grnd/Mech Altered (NDD2) Medication Administration: Whole with Liquid Please contact the pharmacy regarding appropriate crushable or liquid drug formulations that are available whenever modified delivery is recommended. Compensatory Strategies Recommended: Sitting Upright (90 deg) Small Bites and Sips Alternate Liquids/Solids Rate of Ingestion Change Oral Check Avoid Specific Foods Supervision during eating and or drinking: Total Supervision (1:1) Recommendation for Speech Therapy: Speech Therapy through Rehab Facility Text Comment: Recommend follow-up with speech pathologist at [facility]. PLAN: Intake Recommendations: Route: PO Diet Grade: Mechanical Soft Liquid Consistencies: Thin Post-Study Functional Oral Intake Scale (FOIS): 5- Total oral intake of multiple consistencies requiring special preparation No evidence of aspiration or penetration during this exam. There was good oral and pharyngeal clearance. Pt presents with mild oral phase dysphagia secondary to edentulous state. Recommend GROUND/MECH ALTERED (NDD2) diet with sauces/gravies and THIN liquids. Recommend supervision during meals to ensure aspiration precautions and to assist pt with tray set up and feeding as needed. Provide pt with cues and reminders as needed to use strategies throughout meals. Recommended strategies and precautions include: -Maintain upright 90 degree position when eating and drinking. -Avoid taking chain sips or ?chugging? liquids. -One bite at a time, clearing oral cavity completely before taking more bites. -Moisten food with sauces and gravies as needed to ease mastication. -Avoid certain foods: hard or tough to chew solids. Prognosis for Improvement: The prognosis for the patient to meet nutritional needs by mouth is excellent based on degree of impairment. Clinician - Supplemental, Miscellaneous Communication: It is important to note MBSS objective studies are snapshots in time and Patient function might vary with factors such as time of day or concomitant medical conditions. For this reason, the final treatment plan for this patient should rest with their medical care team. Additional recommendations should be considered with the totality of the Patient in mind. Thank for the opportunity to participate in the care of this patient. If you have any questions about the content of this report, please contact the [facility] at [facility]. Education: Education regarding findings from today's study and plans for therapy were provided to Patient and family/caregiver through Written Instruction. Supervisor Welding Equipment Repairer Clinician/Clinical Fellow: No Supervisory Statement: N/A Speech Language Pathologist: Em Murphy M.A., CCC[employer]
== END 2021-12-19 14:14 | disposition home or self-care (01) ==
LOC: HO.XRAY 14:13
PROVIDERS: Visit Provider Hospitalist
DX: R13.11 Dysphagia, oral phase (principal)
CPT/HCPCS: 74230; 92611

== ENCOUNTER → 2022-04-29 09:55 | Outpatient (BNVA) | payer MEDICAID, SELFPAY | PROVIDERS: PCP Hospitalist; Referring Provider Hospitalist; Visit Provider Physician Assistant | DX: Z12.11 Encounter for screening for malignant neoplasm of colon (principal); G93.1 Anoxic brain damage, not elsewhere classified | CPT/HCPCS: 99202 ==

== ENCOUNTER 2022-08-08 10:43 | Day surgery (SDC) | payer MEDICAID, SELFPAY ==
--- NOTE | 2022-08-07 12:48 | HO.ANESPROP2 ---
Documented by User: Chantal Connors NP 08/07/22 12:50 HPI - Anesthesia Eval Consult details Narrative: 61yo M for Colonoscopy Brain injury. SNF resident. Stable per 06/2022 provider tyrese. [facility] Active Problems Active Problems: All Active Problems (Updated 08/06/22 @ 15:27 by Lexi León, AMRITA) Encounter for screening colonoscopy (Acute) Diabetes (Acute) HTN (hypertension) (Acute) Dyslipidemia (Acute) Anoxic brain injury (Acute) Subdural hematoma (Acute) Past Medical History Medical History Anoxic brain injury Diabetes Dyslipidemia Epilepsy HTN (hypertension) Lacunar infarction Resides in shelter facility Subdural hematoma Family History Family History (Updated 04/29/22 @ 10:24 by Tracy Hardy PA-C) Unknown No problems noted. Surgical History Surgical History History of hip surgery Social History Social History (Updated 04/29/22 @ 10:25 by Tracy Hardy PA-C) Household Members: Foster Family Alcohol intake: former Patient Tobacco Use Status: Current someday Tobacco user Tobacco use type: Cigarette Advance Directives: No Advance Directives Information Provided: Yes Meds Allergies Allergy/AdvReac Type Severity Reaction Status Date / Time No Known Allergies Allergy Verified 08/08/22 11:03 [No Known Allergies*] Home Medications Medication Instructions Recorded Confirmed Last Taken Type acetaminophen 325 mg capsule 650 mg PO Q6H PRN 04/29/22 Unknown History aspirin 325 mg tablet,delayed 325 mg PO DAILY 04/29/22 Unknown History release atorvastatin 10 mg tablet 10 mg PO BEDTIME 04/29/22 Unknown History bisacodyl 10 mg rectal suppository 10 mg NC DAILY PRN 04/29/22 Unknown History (Gentle Laxative (bisacodyl)) docusate sodium 100 mg capsule 100 mg PO DAILY 04/29/22 Unknown History (Colace) dulaglutide 0.75 mg/0.5 mL 0.75 mg subcut QWEEK 04/29/22 Unknown History subcutaneous pen injector (Trulicity) levetiracetam 1,000 mg tablet 1,000 mg PO BID 04/29/22 Unknown History (Keppra) levetiracetam 250 mg tablet 250 mg PO BID 04/29/22 Unknown History (Reina) lisinopril 10 mg tablet 10 mg PO DAILY 04/29/22 Unknown History metformin 1,000 mg tablet 1,000 mg PO BID 04/29/22 Unknown History metoprolol succinate 25 mg 12.5 mg PO BID 04/29/22 Unknown History tablet,extended release 24 hr multivitamin (Daily Multi-Vitamin 1 tab PO DAILY 04/29/22 Unknown History tablet) polyethylene glycol 3350 17 17 g PO DAILY 04/29/22 Unknown History gram/dose oral powder quetiapine 100 mg tablet (Seroquel) 100 mg PO BEDTIME 04/29/22 Unknown History sennosides 8.6 mg capsule (senna) 8.6 mg PO DAILY 04/29/22 Unknown History sodium phosphates 19 gram-7 118 ml NC BEDTIME PRN 04/29/22 Unknown History gram/118 mL enema (Fleet Enema) ziprasidone HCl 20 mg capsule 20 mg PO BID 04/29/22 Unknown History (Andrew) Exam Exam Date and Time: August 07, 2022 1248 Pertinent Lab Results Pertinent Lab Results: CBC and BMP from outside facility 07/2022 WNL Assessment and Plan Assessment Anesthesia Assessment: Chart Reviewed Documented by User: Joseph Herzog MD 08/08/22 11:13 [facility] Past Medical History Medical History Anoxic brain injury Diabetes Dyslipidemia Epilepsy HTN (hypertension) Lacunar infarction Resides in shelter facility Subdural hematoma Family History Family History (Updated 04/29/22 @ 10:24 by Tracy Hardy PA-C) Unknown No problems noted. Family history of problems with anesthesia: No Surgical History Surgical History History of hip surgery History of Problems with Anesthesia: No Social History Social History (Updated 04/29/22 @ 10:25 by Tracy Hardy PA-C) Household Members: Foster Family Alcohol intake: former Patient Tobacco Use Status: Current someday Tobacco user Tobacco use type: Cigarette Advance Directives: No Advance Directives Information Provided: Yes Meds Allergies Allergy/AdvReac Type Severity Reaction Status Date / Time No Known Allergies Allergy Verified 08/08/22 11:03 [No Known Allergies*] Home Medications Medication Instructions Recorded Confirmed Last Taken Type acetaminophen 325 mg capsule 650 mg PO Q6H PRN 04/29/22 Unknown History aspirin 325 mg tablet,delayed 325 mg PO DAILY 04/29/22 Unknown History release atorvastatin 10 mg tablet 10 mg PO BEDTIME 04/29/22 Unknown History bisacodyl 10 mg rectal suppository 10 mg NC DAILY PRN 04/29/22 Unknown History (Gentle Laxative (bisacodyl)) docusate sodium 100 mg capsule 100 mg PO DAILY 04/29/22 Unknown History (Colace) dulaglutide 0.75 mg/0.5 mL 0.75 mg subcut QWEEK 04/29/22 Unknown History subcutaneous pen injector (Trulicity) levetiracetam 1,000 mg tablet 1,000 mg PO BID 04/29/22 Unknown History (Keppra) levetiracetam 250 mg tablet 250 mg PO BID 04/29/22 Unknown History (Keppra) lisinopril 10 mg tablet 10 mg PO DAILY 04/29/22 Unknown History metformin 1,000 mg tablet 1,000 mg PO BID 04/29/22 Unknown History metoprolol succinate 25 mg 12.5 mg PO BID 04/29/22 Unknown History tablet,extended release 24 hr multivitamin (Daily Multi-Vitamin 1 tab PO DAILY 04/29/22 Unknown History tablet) polyethylene glycol 3350 17 17 g PO DAILY 04/29/22 Unknown History gram/dose oral powder quetiapine 100 mg tablet (Seroquel) 100 mg PO BEDTIME 04/29/22 Unknown History sennosides 8.6 mg capsule (senna) 8.6 mg PO DAILY 04/29/22 Unknown History sodium phosphates 19 gram-7 118 ml NC BEDTIME PRN 04/29/22 Unknown History gram/118 mL enema (Fleet Enema) ziprasidone HCl 20 mg capsule 20 mg PO BID 04/29/22 Unknown History (Andrew) Exam Airway Mallampati Class: II TM Dist: <=3cm Neck ROM: Limited Heart: rrr Lungs: cta Assessment and Plan Assessment Anesthesia Assessment: Anesthesia Plan Discussed Final Anesthetic Review Family History of Problems with Anesthesia: No History of Problems with Anesthesia: No NPO: Yes ASA Class: IV Final Preanesthetic Review: No Changes in Pt Med Stat, Meds/Allgs Chart Reviewed, Consent Obtained/Reviewed and Anes Risks/Benef Reviewed Patient Risk: High Procedure Risk: Intermediate Assessment/Block/Sedation in SS: Assess/Block/Sedation-SS Anesthetic Plan Anesthetic Plan: MAC: and Agree w/ Assess. and Plan Disposition: Standard PACU
[2022-08-07 13:30] VITALS: BMI 28.0
--- NOTE | 2022-08-08 10:49 | MHC.SHP ---
Pre-Procedural Eval Section A Date of Service: 08/08/22 Section B Chief Complaint: Encounter for screening for malignant neoplasm of Relevant Family History (Specify if Yes): No Relevant Social History: Tobacco Use Present Medications: see Short Stay Collaborative assessment Medical History: Significant History (Anoxic brain injury Epilepsy Lacunar infarction Subdural hematoma) History of Previous Operations: Relevant previous surgery/procedure and date(s) (History of hip surgery) Allergies: Allergies Allergy/AdvReac Type Severity Reaction Status Date / Time No Known Allergies Allergy Verified 04/29/22 10:00 [No Known Allergies*] Review of Systems Sugical H&P ROS: Negative: Constitution, Cardiovascular, Respiratory, Neurological, Psychiatric, Hem-Onc, Allergic/Immunologic, Gastrointestinal, Genitourinary, Musculoskeletal, Integumentary, Endocrine and Eyes/Ears/Nose/Throat Exam Surgical H&P Exam: Normal: HEENT, Normal: Heart, Normal: Lungs, Normal: Extremities, Normal: Abdomen, Normal: Skin and Normal: Neurological Plan Diagnosis/Plan: Unchanged I have reviewed the history and physical and performed a pertinent physical examination on my patient. No changes have occurred unless specified. Time Spent With Patient Time: Total time managing care of this patient today ____ minutes.
[2022-08-08] MEDS: Sodium Phosphate,Mono-Dibasic 133 ML ENEMA PR (11:15)
[2022-08-08] MEDS: Lactated Ringers 1,000 ML 100 ML IVCONT (11:15)
[2022-08-08 11:18] VITALS: BP 119/83; PULSE 88; RESP 18; TEMP 36.4; O2SAT 96
--- NOTE | 2022-08-08 11:24 | P.OP_ITS ---
Operative Note Operative Note Date of Service: 08/08/22 Narrative: Operative Information Procedure Description: Colonoscopy Indication: screening Anesthesia: MAC COLONOSCOPY Instrument: Olympus variable stiffness pediatric scope 190L Colonoscopy Monitoring: Vital signs and clinical assessment, continuous EKG monitoring, Pulse oximetry, Carbon Dioxide monitoring and blood pressure monitoring were done throughout the procedure. Colon withdrawal time was 10 minutes. Procedure: The patient was placed in the left lateral decubitis position and pre-procedure medications were administered. After a digital rectal examination of the ano-rectum, the video colonoscope was inserted into the rectum and advanced through the colon to the cecum/TI. The colonoscope was slowly withdrawn in a retrograde panoramic fashion and the colon mucosa was carefully examined including a retroflexed view of the rectum. Findings and interventions are described below. Procedure Difficulty: easy Findings: Terminal Ileum-normal Cecum:normal Ascending Colon: normal Transverse Colon -normal Descending Colon:normal Sigmoid Colon: normal Rectum: Retroflexion with small internal hemorrhoids, grade I, 10-12 mm sessile polyp removed with cold snare Anorectum - normal Colon preparation: [place] Bowel Preparation Scale Right colon; 2 Transverse colon: 2 Left colon; 3 (0 = Unprepared colon segment with mucosa not seen due to solid stool that cannot be cleared. 1 = Portion of mucosa of the colon segment seen, but other areas of the colon segment not well seen due to staining, residual stool and/or opaque liquid. 2 = Minor amount of residual staining, small fragments of stool and/or opaque liquid, but mucosa of colon segment seen well. 3 = Entire mucosa of colon segment seen well with no residual staining, small fragments of stool or opaque liquid) Impression and Post Procedure Diagnosis: polyp internal hemorrhoids Plan: High fiber diet leaflet Avoid straining at stool, epsom salts and sitz bath, anusol supps or cream Repeat Colonoscopy in 3 years or earlier if clinically indicated Above findings were reviewed with the patient and relevant handouts were provided if indicated.
[2022-08-08 11:28] LABS: Glucose, Whole Blood 122 mg/dL (60-115)
--- NOTE | 2022-08-08 11:31 | PC.NURSE ---
Patient is alert to person only. Guardian contacted via telephone for consents. Caregiver from [employer] present to assist as needed.
--- NOTE | 2022-08-08 11:38 | PC.NURSE ---
answers to questions are based on history and physical information and [employer] employee.
--- NOTE | 2022-08-08 11:39 | PC.NURSE ---
patient is one staff assist with pivoting from w/c to stretcher and in bathroom.
[2022-08-08 11:56] VITALS: BP 86/54; PULSE 80; RESP 16; TEMP 36.1; O2SAT 98
[2022-08-08 12:12] VITALS: BP 109/67; PULSE 78; RESP 16; TEMP 36.1; O2SAT 93
== END 2022-08-08 13:35 | disposition home or self-care (01) ==
PROVIDERS: PCP Hospitalist; Visit Provider Internal Medicine Gastroenterology
PROC: 0DJD8ZZ Inspection of Lower Intestinal Tract, Via Natural or Artificial Opening Endoscopic (ICD-10-PCS; CPT 45378; principal; 2022-08-08 11:40)
DX: Z12.11 Encounter for screening for malignant neoplasm of colon (principal); D12.8 Benign neoplasm of rectum; K64.0 First degree hemorrhoids; G93.1 Anoxic brain damage, not elsewhere classified; G40.909 Epilepsy, unspecified, not intractable, without status epilepticus; I10 Essential (primary) hypertension; E78.5 Hyperlipidemia, unspecified; E11.9 Type 2 diabetes mellitus without complications; Z79.84 Long term (current) use of oral hypoglycemic drugs; Z79.85 Long-term (current) use of injectable non-insulin antidiabetic drugs; Z79.82 Long term (current) use of aspirin; Z79.899 Other long term (current) drug therapy; Z86.73 Personal history of transient ischemic attack (TIA), and cerebral infarction without residual deficits; F17.210 Nicotine dependence, cigarettes, uncomplicated
CPT/HCPCS: 45385; 82947; 88305

== ENCOUNTER → 2022-08-22 07:53 | Outpatient (BNVA) | payer MEDICAID, SELFPAY | PROVIDERS: PCP Hospitalist; Visit Provider Physician Assistant | DX: D12.8 Benign neoplasm of rectum (principal); K64.8 Other hemorrhoids; Z98.890 Other specified postprocedural states | CPT/HCPCS: 99212 ==

== ENCOUNTER 2023-01-03 11:51 | Outpatient (REF) | payer MEDICAID, SELFPAY ==
--- NOTE | ~2023-01-03 | XR_ITS ---
EXAMINATION: XR CHEST CLINICAL INFORMATION: Right-sided weakness COMPARISON: 02/02/2021 TECHNIQUE: 2 views of the chest were obtained. FINDINGS: No significant abnormality is noted involving the heart, lungs, mediastinum, bony thorax or soft tissues. XR/XR chest 2V IMPRESSION: Unremarkable examination.
== END 2023-01-03 11:52 | disposition home or self-care (01) ==
LOC: HO.XRAY 11:51
PROVIDERS: PCP Hospitalist; Visit Provider Hospitalist
DX: R53.1 Weakness (principal)
CPT/HCPCS: 71046

== ENCOUNTER 2023-08-10 18:56 | Emergency (ER) | payer MEDICAID, SELFPAY ==
[2023-08-10] VITALS (51 sets, daily range): BP systolic 63–190; BP diastolic 37–99; PULSE 84–127; RESP 22–36; TEMP -17.7–37.3; O2SAT 91–100; BMI 24.2
--- NOTE | ~2023-08-10 | XR_ITS ---
EXAMINATION: XR CHEST CLINICAL INFORMATION: Post intubation COMPARISON: Chest radiograph 01/03/2023 TECHNIQUE: Frontal view of the chest was obtained. FINDINGS: An ET tube is present about 4 cm above the darby. An NG tube has its tip in the stomach. Right IJ catheter with its tip in the mid to distal SVC. Heart size is normal. There is left basilar atelectasis. No effusions or pneumothorax. Bony thorax is unremarkable. XR/XR chest 1V IMPRESSION: 1. ET tube 4 cm above the darby. 2. Left basilar atelectasis.
--- NOTE | 2023-08-10 19:02 | ECG_ITS ---
Test Reason : CARDIAC ARRESST Blood Pressure : / mmHG Vent. Rate : 100 BPM Atrial Rate : 100 BPM P-R Int : 152 ms QRS Dur : 138 ms QT Int : 370 ms P-R-T Axes : 072 093 -21 degrees QTc Int : 477 ms Sinus rhythm with frequent Premature ventricular complexes Right bundle branch block T wave abnormality, consider inferior ischemia Abnormal ECG When compared with ECG of 13-JUN-2021 19:40, Premature ventricular complexes are now Present Right bundle branch block is now Present Referred By: Vel Rea Electronically Signed By:LILLY RHOADES
[2023-08-10] MEDS: propofoL 1,000 MG/100 ML VIAL 14.58 MG IVCONT (19:05)
--- NOTE | 2023-08-10 19:05 | ED.CPR ---
HPI - CPR General Chief Complaint: Cardiac Arrest/CPR Stated Complaint: cardiac arrest,intubated Time Seen by Provider: 08/10/23 19:05 Source: EMS Mode of arrival: EMS History of Present Illness ED Provider: lamin ORELLANA narrative: Patient is 62 years old with history of anoxic brain injury epilepsy , lacunar infarct, subdural hematoma came from skilled nursing for acute hypoxia after choking on broccoli tuna sandwich patient was in dining room having food choked on the sandwich immediately Heimlich maneuver tried, unsuccessful downtime about 6-8 minute when bus analyst reached patient was saturating 60% on arrival, after ambu increased to 80s and after intubation 100% while intubating EMS noted a big piece of tuna and broccoli which was removed initial rhythm was PEA patient was intubated baout after 30 minutes of downtime, received 6 doses of epi and ampule of bicarb pt ROSC at 1838 on arrival cardiac rhythm was sinus tachycardia blood pressure was 79/38 Related Data Home Medications ?Medication ?Instructions ?Recorded ?Confirmed acetaminophen 325 mg capsule 650 mg PO Q6H PRN 04/29/22 08/22/22 aspirin 325 mg tablet,delayed 325 mg PO DAILY 04/29/22 08/22/22 release atorvastatin 10 mg tablet 10 mg PO BEDTIME 04/29/22 08/22/22 bisacodyl 10 mg rectal suppository 10 mg KS DAILY PRN 04/29/22 08/22/22 (Gentle Laxative (bisacodyl)) docusate sodium 100 mg capsule 100 mg PO DAILY 04/29/22 08/22/22 (Colace) dulaglutide 0.75 mg/0.5 mL 0.75 mg subcut QWEEK 04/29/22 08/22/22 subcutaneous pen injector (Trulicity) levetiracetam 1,000 mg tablet 1,000 mg PO BID 04/29/22 08/22/22 (Keppra) levetiracetam 250 mg tablet 250 mg PO BID 04/29/22 08/22/22 (Keppra) lisinopril 10 mg tablet 10 mg PO DAILY 04/29/22 08/22/22 metformin 1,000 mg tablet 1,000 mg PO BID 04/29/22 08/22/22 metoprolol succinate 25 mg 12.5 mg PO BID 04/29/22 08/22/22 tablet,extended release 24 hr multivitamin (Daily Multi-Vitamin 1 tab PO DAILY 04/29/22 08/22/22 tablet) polyethylene glycol 3350 17 17 g PO DAILY 04/29/22 08/22/22 gram/dose oral powder quetiapine 100 mg tablet (Seroquel) 100 mg PO BEDTIME 04/29/22 08/22/22 sennosides 8.6 mg capsule (senna) 8.6 mg PO DAILY 04/29/22 08/22/22 sodium phosphates 19 gram-7 118 ml KS BEDTIME PRN 04/29/22 08/22/22 gram/118 mL enema (Fleet Enema) ziprasidone HCl 20 mg capsule 20 mg PO BID 04/29/22 08/22/22 (Geodon) Allergies Allergy/AdvReac Type Severity Reaction Status Date / Time No Known Allergies Allergy Verified 08/10/23 19:16 [No Known Allergies*] [facility] Past Medical History Medical History (Updated 08/11/23 @ 00:01 by Hossein Estrada) Resides in [facility] facility Dyslipidemia Diabetes HTN (hypertension) Epilepsy Subdural hematoma Lacunar infarction Anoxic brain injury Surgical History History of hip surgery Hx of colonoscopy Family History Family History Unknown No problems noted. Social History Social History Household Members: Foster Family Alcohol intake: former Patient Tobacco Use Status: Current someday Tobacco user Tobacco use type: Cigarette Advance Directives: No Advance Directives Information Provided: No Advance Directives on File: No Do you have a plan to hurt others: No Plan Physical Exam Vital Signs: Vital Signs: Last Vital Signs Temp 99.1 F 08/10/23 23:45 Pulse 127 H 08/10/23 23:45 Resp 22 H 08/10/23 23:45 BP 89/59 L 08/10/23 23:45 Pulse Ox 94 08/10/23 23:45 O2 Del Method Mechanical Ventil ation 08/10/23 23:45 O2 Flow Rate 90 08/10/23 20:56 FiO2 100 08/10/23 23:45 Oxygen Flow Rate 18 08/10/23 19:11 BMI result Body Mass Index 24.2 Appearance: Post intubation Eyes: Pupils 3 mm both sides sluggish reaction to light ENT: ET tube in place 26 cm from lip line 7.0 Neck: Normal inspection. Neck supple. CVS: Normal heart rate and rhythm. No murmur/rub or gallop Pulses normal. Respiratory: Post intubation Equal air entry bilateral, no wheezing/rales/rhonchi Abdomen: Soft and nontender. Bowel sounds are present, no mass palpable, no CVA tenderness Skin: Skin warm and dry. Normal skin color. Normal skin turgor. Extremities: No lower extremity edema. Neuro: Post intubation Medications Administered Discontinued Medications Generic Name Dose Route Start Last Admin Trade Name Freq PRN Reason Stop Dose Admin Fentanyl 100 mcg 08/10/23 20:16 08/10/23 20:19 Fentanyl Citrate/Pf 100 Mcg/2 Ml Vial IVPUSH 08/10/23 20:17 100 mcg ONCE ONE Administration Protocol Sodium Chloride 1,000 mls @ 999 mls/hr 08/10/23 19:05 08/10/23 20:13 Ns IV 08/10/23 20:05 Infused .Q1H1M ONE Infusion Propofol 1,000 mg in 100 mls @ 0 mls/hr 08/10/23 19:15 08/10/23 22:22 Diprivan IVCONT 50 mcg/kg/min .Q0M ALTON 24.3 mls/hr Titration Protocol Per Protocol Piperacillin Sod/Tazobactam 50 mls @ 100 mls/hr 08/10/23 19:36 08/10/23 20:40 Sod 3.375 gm/ Sodium Chloride IV 08/10/23 20:05 Infused ONCE ONE Infusion Sodium Chloride 1,000 mls @ 999 mls/hr 08/10/23 19:46 08/10/23 21:04 Ns IV 08/10/23 20:46 Infused .Q1H1M ONE Infusion Norepinephrine Bitartrate 8 mg in 250 mls @ 0 mls/hr 08/10/23 20:00 08/10/23 23:18 Levophed IV 0.13 mcg/kg/min .Q0M ALTON 19.74 mls/hr Titration Protocol Per Protocol Sodium Chloride 1,000 mls @ 999 mls/hr 08/10/23 20:39 08/10/23 21:59 Ns IV 08/10/23 21:39 Infused .Q1H1M ONE Infusion Fentanyl 1,000 mcg in 100 mls @ 0 mls/hr 08/10/23 22:00 08/10/23 22:53 Sublimaze/Ns IVCONT 100 mcg/hr .Q0M ALTON 10 mls/hr Titration Protocol Per Protocol Levetiracetam 1,000 mg in 100 mls @ 400 mls/hr 08/10/23 22:39 08/10/23 23:05 Keppra IV 08/10/23 22:53 Infused ONCE ONE Infusion Midazolam HCl 2 mg 08/10/23 19:46 08/10/23 19:28 Midazolam Hcl/Pf 2 Mg/2 Ml Vial IVPUSH 08/10/23 19:47 2 mg ONCE ONE Administration Midazolam HCl 2 mg 08/10/23 20:16 08/10/23 20:19 Midazolam Hcl/Pf 2 Mg/2 Ml Vial IVPUSH 08/10/23 20:17 2 mg ONCE ONE Administration Midazolam HCl 2 mg 08/10/23 22:55 08/10/23 22:59 Midazolam Hcl/Pf 2 Mg/2 Ml Vial IVPUSH 08/10/23 22:56 2 mg ONCE ONE Administration Pantoprazole Sodium 40 mg 08/10/23 19:36 08/10/23 19:51 Pantoprazole Sodium 40 Mg/10 Ml Vial IVPUSH 08/10/23 19:37 40 mg ONCE ONE Administration Rocuronium [place] 50 mg 08/10/23 20:47 08/10/23 20:53 Rocuronium [place] 50 Mg/5 Ml Vial IVPUSH 08/10/23 20:48 50 mg ONCE ONE Administration Rocuronium [place] 50 mg 08/10/23 23:05 08/10/23 23:17 Rocuronium [place] 50 Mg/5 Ml Vial IVPUSH 08/10/23 23:06 50 mg ONCE ONE Administration Medical Decision Making Medical Decision Making MDM Narrative: Patient with acute respiratory failure secondary to choking on the food status post intubation requiring Levophed for pressure support no ICU bed available in our hospital Vent setting AC rate 22 tidal volume 460 peep of 5 FiO2 90 % 21:25 case discussed with [facility] ICU resident accepted the patient under Dr. Gomez At this time patient is on Levophed drip 0.5 mcg per kg per minute, propofol on 50mcg starting on fentanyl drip for sedation as patient is biting the tube 20:38 blood pressure 130/98 heart rate 118 patient having twitching movements with history of seizures will give him 1 g of Keppra patient is on Keppra 250 mg twice daily 20:47 EMS here to take the patient to [facility] Differential Diagnosis Differential Diagnoses: The differential diagnosis associated with the presentation includes Admission/Observation Consideration of admission/observation: Escalation of care including admission/observation considered Lab Data MDM Lab Attestation statement: I reviewed the patient's lab results. 08/10/23 19:32 08/10/23 19:32 Labs: Lab Results 08/10/23 08/10/23 08/10/23 Range/Units 19:17 19:32 19:42 WBC 13.8 H (4.8-10.8) X10*3/uL RBC 4.98 (4.60-5.80) X10*6/uL Hgb 14.6 (14.0-18.0) g/dl Hct 44.5 (42.0-52.0) % MCV 89.4 (80.0-98.0) fL MCH 29.3 (27.0-33.0) pg MCHC 32.8 (31.0-36.0) g/dl RDW 13.0 (11.0-16.0) % Plt Count 156 L D (160-400) X10*3/uL MPV 9.9 (9.4-12.4) fL Immature Gran % (Auto) 4.0 H (0.0-0.4) % Neut % (Auto) 73.2 H (45-73) % Lymph % (Auto) 20.5 (20-40) % [place] % (Auto) 1.7 L (2-11) % Eos % (Auto) 0.2 (0-4) % Baso % (Auto) 0.4 (0-2) % Lymph # (Auto) 2.8 (1.2-4.9) X10*3/uL [place] # (Auto) 0.2 (0.1-1.2) X10*3/uL Eos # (Auto) 0.0 (0.0-0.4) X10*3/uL Baso # (Auto) 0.1 (0.0-0.2) X10*3/uL Abs Immat Gran (auto) 0.55 H (0.00-0.03) X10*3/uL Absolute Neuts (auto) 10.1 H (2.0-8.3) x10*3/uL Absolute Nucleated RBC 0.000 (0.0-0.012) X10*3/uL Nucleated RBC % (auto) 0.0 (0.0-0.2) /100WBC PT 13.9 H (11.1-13.3) SEC INR 1.1 (0.9-1.1) APTT 46.6 H (26.0-36.8) SEC VBG pH 7.11 L* (7.32-7.43) VBG pCO2 41 mmHg VBG pO2 95 mmHg VBG HCO3 13 L (22-26) mmol/L VBG O2 Saturation 94.0 % VBG Base Excess -15.3 mmol/L Sodium 144 (135-145) mmol/L Potassium 3.8 (3.3-5.1) mmol/L Chloride 109 H (96-108) mmol/L Carbon Dioxide 12 L (22-29) mmol/L Anion Gap 27 H (12-20) BUN 13 (9-16) mg/dL Creatinine 1.15 (0.5-1.4) mg/dL Estim Creat Clear Calc 72.1 Estimated GFR > 60 POC Glucose 190 H (60-115) mg/dL Random Glucose 253 H (60-115) mg/dL Lactic Acid (0.5-2.0) mmol/L Calcium 8.5 D (8.4-10.2) mg/dL Total Bilirubin 0.3 (0.0-1.0) mg/dL AST 132 H (5-37) U/L ALT 122 H (0-40) U/L Alkaline Phosphatase 76 (39-117) U/L Troponin I High Sens 319.3 H* (<3.5-35.0) ng/L Total Protein 6.4 L (6.5-8.0) g/dL Albumin 3.4 L (3.5-5.0) g/dL Urine Color Urine Appearance Urine pH (5.0-9.0) Ur Specific [place] (1.005-1.025) Urine Protein (Neg-Trace) mg/dL Urine Glucose (UA) (Negative) mg/dL Urine Ketones (Negative) mg/dL Urine Blood (Negative) Urine Nitrite (Negative) Ur Leukocyte Esterase (Negative) Urine RBC (0-2) /HPF Urine WBC (0-5) /HPF Ur Squamous Epith Cells (0-2) /HPF Urine Bacteria (None Seen) Hyaline Casts (0-2) /LPF Urine Opiates Screen (Not Detect) Ur Buprenorphine Scrn (Not Detect) ng/mL Ur Oxycodone Screen (Not Detect) ng/mL Urine Methadone Screen (Not Detect) ng/mL Urine Fentanyl Screen (Not Detect) Ur Barbiturates Screen (Not Detect) Ur Phencyclidine Scrn (Not Detect) Ur Amphetamines Screen (Not Detect) U Benzodiazepines Scrn (Not Detect) Urine Cocaine Screen (Not Detect) U Marijuana (THC) Screen (Not Detect) 08/10/23 08/10/23 08/10/23 Range/Units 20:11 20:16 20:27 WBC (4.8-10.8) X10*3/uL RBC (4.60-5.80) X10*6/uL Hgb (14.0-18.0) g/dl Hct (42.0-52.0) % MCV (80.0-98.0) fL MCH (27.0-33.0) pg MCHC (31.0-36.0) g/dl RDW (11.0-16.0) % Plt Count (160-400) X10*3/uL MPV (9.4-12.4) fL Immature Gran % (Auto) (0.0-0.4) % Neut % (Auto) (45-73) % Lymph % (Auto) (20-40) % [place] % (Auto) (2-11) % Eos % (Auto) (0-4) % Baso % (Auto) (0-2) % Lymph # (Auto) (1.2-4.9) X10*3/uL [place] # (Auto) (0.1-1.2) X10*3/uL Eos # (Auto) (0.0-0.4) X10*3/uL Baso # (Auto) (0.0-0.2) X10*3/uL Abs Immat Gran (auto) (0.00-0.03) X10*3/uL Absolute Neuts (auto) (2.0-8.3) x10*3/uL Absolute Nucleated RBC (0.0-0.012) X10*3/uL Nucleated RBC % (auto) (0.0-0.2) /100WBC PT (11.1-13.3) SEC INR (0.9-1.1) APTT (26.0-36.8) SEC VBG pH 7.12 L* (7.32-7.43) VBG pCO2 48 mmHg VBG pO2 53 mmHg VBG HCO3 16 L (22-26) mmol/L VBG O2 Saturation 73.0 % VBG Base Excess -12.8 mmol/L Sodium (135-145) mmol/L Potassium (3.3-5.1) mmol/L Chloride (96-108) mmol/L Carbon Dioxide (22-29) mmol/L Anion Gap (12-20) BUN (9-16) mg/dL Creatinine (0.5-1.4) mg/dL Estim Creat Clear Calc Estimated GFR POC Glucose (60-115) mg/dL Random Glucose (60-115) mg/dL Lactic Acid 8.2 H* (0.5-2.0) mmol/L Calcium (8.4-10.2) mg/dL Total Bilirubin (0.0-1.0) mg/dL AST (5-37) U/L ALT (0-40) U/L Alkaline Phosphatase (39-117) U/L Troponin I High Sens (<3.5-35.0) ng/L Total Protein (6.5-8.0) g/dL Albumin (3.5-5.0) g/dL Urine Color Yellow Urine Appearance Clear Urine pH 5.5 (5.0-9.0) Ur Specific [place]pine >= 1.030 H (1.005-1.025) Urine Protein 100 (2+) H (Neg-Trace) mg/dL Urine Glucose (UA) >=1000 H (Negative) mg/dL Urine Ketones Negative (Negative) mg/dL Urine Blood Moderate (2+) H (Negative) Urine Nitrite Negative (Negative) Ur Leukocyte Esterase Negative (Negative) Urine RBC 6-10 H (0-2) /HPF Urine WBC 11-20 H (0-5) /HPF Ur Squamous Epith Cells 3-5 (0-2) /HPF Urine Bacteria Trace (None Seen) Hyaline Casts 3-5 (0-2) /LPF Urine Opiates Screen Not Detected (Not Detect) Ur Buprenorphine Scrn Not Detected (Not Detect) ng/mL Ur Oxycodone Screen Not Detected (Not Detect) ng/mL Urine Methadone Screen Not Detected (Not Detect) ng/mL Urine Fentanyl Screen Not Detected (Not Detect) Ur Barbiturates Screen Not Detected (Not Detect) Ur Phencyclidine Scrn Not Detected (Not Detect) Ur Amphetamines Screen Not Detected (Not Detect) U Benzodiazepines Scrn Not Detected (Not Detect) Urine Cocaine Screen Not Detected (Not Detect) U Marijuana (THC) Screen Not Detected (Not Detect) 08/10/23 Range/Units 22:13 WBC (4.8-10.8) X10*3/uL RBC (4.60-5.80) X10*6/uL Hgb (14.0-18.0) g/dl Hct (42.0-52.0) % MCV (80.0-98.0) fL MCH (27.0-33.0) pg MCHC (31.0-36.0) g/dl RDW (11.0-16.0) % Plt Count (160-400) X10*3/uL MPV (9.4-12.4) fL Immature Gran % (Auto) (0.0-0.4) % Neut % (Auto) (45-73) % Lymph % (Auto) (20-40) % [place] % (Auto) (2-11) % Eos % (Auto) (0-4) % Baso % (Auto) (0-2) % Lymph # (Auto) (1.2-4.9) X10*3/uL [place] # (Auto) (0.1-1.2) X10*3/uL Eos # (Auto) (0.0-0.4) X10*3/uL Baso # (Auto) (0.0-0.2) X10*3/uL Abs Immat Gran (auto) (0.00-0.03) X10*3/uL Absolute Neuts (auto) (2.0-8.3) x10*3/uL Absolute Nucleated RBC (0.0-0.012) X10*3/uL Nucleated RBC % (auto) (0.0-0.2) /100WBC PT (11.1-13.3) SEC INR (0.9-1.1) APTT (26.0-36.8) SEC VBG pH 7.24 L (7.32-7.43) VBG pCO2 43 mmHg VBG pO2 50 mmHg VBG HCO3 19 L (22-26) mmol/L VBG O2 Saturation 77.0 % VBG Base Excess -7.9 mmol/L Sodium (135-145) mmol/L Potassium (3.3-5.1) mmol/L Chloride (96-108) mmol/L Carbon Dioxide (22-29) mmol/L Anion Gap (12-20) BUN (9-16) mg/dL Creatinine (0.5-1.4) mg/dL Estim Creat Clear Calc Estimated GFR POC Glucose (60-115) mg/dL Random Glucose (60-115) mg/dL Lactic Acid 3.8 H* (0.5-2.0) mmol/L Calcium (8.4-10.2) mg/dL Total Bilirubin (0.0-1.0) mg/dL AST (5-37) U/L ALT (0-40) U/L Alkaline Phosphatase (39-117) U/L Troponin I High Sens 693.3 H* D (<3.5-35.0) ng/L Total Protein (6.5-8.0) g/dL Albumin (3.5-5.0) g/dL Urine Color Urine Appearance Urine pH (5.0-9.0) Ur Specific Alpine (1.005-1.025) Urine Protein (Neg-Trace) mg/dL Urine Glucose (UA) (Negative) mg/dL Urine Ketones (Negative) mg/dL Urine Blood (Negative) Urine Nitrite (Negative) Ur Leukocyte Esterase (Negative) Urine RBC (0-2) /HPF Urine WBC (0-5) /HPF Ur Squamous Epith Cells (0-2) /HPF Urine Bacteria (None Seen) Hyaline Casts (0-2) /LPF Urine Opiates Screen (Not Detect) Ur Buprenorphine Scrn (Not Detect) ng/mL Ur Oxycodone Screen (Not Detect) ng/mL Urine Methadone Screen (Not Detect) ng/mL Urine Fentanyl Screen (Not Detect) Ur Barbiturates Screen (Not Detect) Ur Phencyclidine Scrn (Not Detect) Ur Amphetamines Screen (Not Detect) U Benzodiazepines Scrn (Not Detect) Urine Cocaine Screen (Not Detect) U Marijuana (THC) Screen (Not Detect) ABG Data ABG Results: Metabolic acidosis Independent Interpretation I performed an independent interpretation of an: EKG Interpretation: Sinus rhythm with ventricular rate of 100 beats per minute right bundle-branch block nonspecific STT wave changes no acute ischemia Radiology Impression Discussion of test interpretation with radiology: I have reviewed the radiologist's reading. Radiologist Impression: [id number] [place] [id number] XRay Report Signed Patient: Lester Stringer MR#: [id number] : 1960 Acct:[id number] Age/Sex: 62 / M ADM Date: 08/10/23 Loc: .ED Attending Dr: Ordering Physician: Vel Rea MD Date of Service: 08/10/23 Procedure(s): XR chest 1V Accession Number(s): [id number] cc: Vladimir Hollins DO; Vel Rea MD~ EXAMINATION: XR CHEST CLINICAL INFORMATION: Post intubation COMPARISON: Chest radiograph 01/03/2023 TECHNIQUE: Frontal view of the chest was obtained. FINDINGS: An ET tube is present about 4 cm above the darby. An NG tube has its tip in the stomach. Right IJ catheter with its tip in the mid to distal SVC. Heart size is normal. There is left basilar atelectasis. No effusions or pneumothorax. Bony thorax is unremarkable. XR/XR chest 1V IMPRESSION: 1. ET tube 4 cm above the darby. 2. Left basilar atelectasis. Dictated By: Arturo Castaneda MD Signed By: <Electronically signed by Arturo Castaneda MD in OV> 08/10/232153 DD/ 09 TD/TT: Secondary Education Professor: YAIMA Procedures Central Line Placement Right IJ: Time Out Performed: Yes Patient Placed on Monitor/Pulse Ox: Yes Prep: mask and gloves Central Line Prep: Chlorhexidine scrub Local Anesthetic: lidocaine 1% Amount of anesthesia used (mL): 4 Ultrasound Used for Placement: Yes Central Line Lumen Inserted: triple Post Procedure: sutured in place, good blood return, all ports aspirated, flushed, capped and sterile dressing applied Post Procedure X-Ray: tip of catheter in good position Patient Tolerated Procedure: well Complications: none Critical Care Time Critical Care Time Critical Care Time: Yes Total Critical Care Time: 75 Attestation: The patient was critically ill with a high probability of imminent or life threatening deterioration. I spent greater than ?80??minutes of discontinuous time evaluating the patient,delivering critical care at the bedside, discussing and evaluating pertinent data with consultants. Critical care time does not include time spent performing separately billable procedures or teaching. Total time spent performing critical care was 75???minutes. Discharge Plan Discharge Clinical Impression: Acute respiratory failure Patient Disposition: [facility] Hospital Transfer Details: [facility] medical ICU Dr Gomez Prescriptions: No Action lisinopril 10 mg tablet 10 mg PO DAILY metformin 1,000 mg tablet 1,000 mg PO BID metoprolol succinate 25 mg tablet extended release 24 hr 12.5 mg PO BID multivitamin [Daily Multi-Vitamin] Tablet 1 tab PO DAILY polyethylene glycol 3350 17 gram/dose powder 17 g PO DAILY senna 8.6 mg capsule 8.6 mg PO DAILY quetiapine [Seroquel] 100 mg tablet 100 mg PO BEDTIME Trulicity 0.75 mg/0.5 mL pen injector 0.75 mg subcut QWEEK acetaminophen 325 mg capsule 650 mg PO Q6H PRN aspirin 325 mg tablet,delayed release (DR/EC) 325 mg PO DAILY atorvastatin 10 mg tablet 10 mg PO BEDTIME bisacodyl [Gentle Laxative (bisacodyl)] 10 mg suppository 10 mg KS DAILY PRN docusate sodium [Colace] 100 mg capsule 100 mg PO DAILY Fleet Enema 19-7 gram/118 mL enema 118 ml KS BEDTIME PRN ziprasidone HCl [Geodon] 20 mg capsule 20 mg PO BID Rx Instructions: give with food (meal/snack) levetiracetam [Keppra] 1,000 mg tablet 1,000 mg PO BID levetiracetam [Keppra] 250 mg tablet 250 mg PO BID Interventions: Acute Care Transfer Worksheet (ED) Last Done: 08/10/23 23:45 Discharge Date/Time: 08/10/23 23:49 Print Language: Polish
[2023-08-10] MEDS: 0.9 % Sodium Chloride 1,000 ML 999 ML IV ×3 (19:19→20:55)
--- NOTE | 2023-08-10 19:22 | PC.NURSE ---
pt biba from [facility] after cardiac arrect. Pt was noted by staff to be eating a sandwich when he choked on it and went down 1800- CPR initiated by staff 1805- ems arrival, CPR continued 1837- ROSC obtained by EMS. Pt intubated in route- 7 tibe, 26 at lip. IO placed in right tibia; 1 amp bicarb and 6 epi in route given. pt arrived at 1859- pulse 80, respiratory at bedside, at bedside. pt transferred onto bed. 1904- propofol initialed at 30mcg/kg.
[2023-08-10] MEDS: Midazolam HCl/PF 2 MG/2 ML VIAL IVPUSH ×3 (19:28→22:59)
--- NOTE | 2023-08-10 19:31 | PC.NURSE ---
central line placed by at this time. labs obtained.
--- NOTE | 2023-08-10 19:41 | PC.NURSE ---
16F temp sensing mercer placed at this time. pt voided 80ml of bright yellow urine.
[2023-08-10 19:43] LABS: MANUAL DIFF FLAG NO
[2023-08-10 19:50] LABS: INTERNATIONAL NORM RATIO 1.1 (0.9-1.1); Prothrombin Time 13.9 SEC (11.1-13.3)
[2023-08-10 19:51] LABS: VBG Base Excess -15.3 mmol/L; VBG HCO3 13 mmol/L (22-26); VBG pCO2 41 mmHg; VBG pH 7.11 (7.32-7.43); VBG pO2 95 mmHg
[2023-08-10] MEDS: Pantoprazole Sodium 40 MG/10 ML VIAL IVPUSH (19:51)
[2023-08-10 19:52] LABS: Venous Blood Gas Refer to POC result
[2023-08-10] MEDS: Piperacillin Sodium/Tazobactam 3.375 GM in 0.9 % Sodium Chloride 50 ML IV (19:52)
[2023-08-10] MEDS: Norepinephrine Bitartrate/D5W 8 MG/250 ML PLAST..BAG 7.59 MG IV (20:00)
--- NOTE | 2023-08-10 20:02 | PC.NURSE ---
dr. viera at bedside with x-ray to confirm placements. per start levophed rate at 0.1 mcg/kg.
[2023-08-10 20:04] LABS: Alanine Aminotransferase 122 U/L (0-40); Albumin Level 3.4 g/dL (3.5-5.0); Alkaline Phosphatase 76 U/L (39-117); Anion Gap 27 (12-20); Aspartate Amino Transferase 132 U/L (5-37); Bilirubin Total 0.3 mg/dL (0.0-1.0); Blood Urea Nitrogen 13 mg/dL (9-16); Calcium 8.5 mg/dL (8.4-10.2); Carbon Dioxide 12 mmol/L (22-29); Chloride 109 mmol/L (96-108); Creatinine Clr Calc Pharmacy 72.1; Estimated Glomerular Filt Rate > 60; Glucose Random 253 mg/dL (60-115); Potassium 3.8 mmol/L (3.3-5.1); Sodium 144 mmol/L (135-145); Total Protein 6.4 g/dL (6.5-8.0)
--- NOTE | 2023-08-10 20:05 | PC.NURSE ---
victor hugo carranza placed on pt per order.
[2023-08-10 20:08] LABS: Basophils Absolute Auto 0.1 X10*3/uL (0.0-0.2); Basophils Percent Auto 0.4 % (0-2); Eosinophils Percent Auto 0.2 % (0-4); Hematocrit 44.5 % (42.0-52.0); Hemoglobin 14.6 g/dl (14.0-18.0); Imm Gran Abs Auto 0.55 X10*3/uL (0.00-0.03); Lymphocytes Absolute Auto 2.8 X10*3/uL (1.2-4.9); Lymphocytes Percent Auto 20.5 % (20-40); Mean Corpuscular HGB Conc 32.8 g/dl (31.0-36.0); Mean Corpuscular Hemoglobin 29.3 pg (27.0-33.0); Mean Corpuscular Volume 89.4 fL (80.0-98.0); Mean Platelet Volume 9.9 fL (9.4-12.4); Monocytes Absolute Auto 0.2 X10*3/uL (0.1-1.2); Monocytes Percent Auto 1.7 % (2-11); Neutrophils Absolute Auto 10.1 x10*3/uL (2.0-8.3); Neutrophils Percent Auto 73.2 % (45-73); Platelet Count 156 X10*3/uL (160-400); Red Blood Count 4.98 X10*6/uL (4.60-5.80); White Blood Count 13.8 X10*3/uL (4.8-10.8)
--- NOTE | 2023-08-10 20:09 | MHC.EDTECH ---
Addendum entered by Nayeli Carlson 08/10/23 22:20: Placed patient on the bear hugger per Doctor Álvaro Original Note: This tech took over care of patient at 1900,patient arrived intubated,patient placed on the reservation sales agent,pacer pads removed and replaced with ours. vitals taken,patient placed in hospital attire,patient had a small soft brow bowel movement,maxine-care given.
[2023-08-10 20:10] LABS: Glucose, Whole Blood 190 mg/dL (60-115)
[2023-08-10 20:10] LABS: Partial Thromboplastin Time 46.6 SEC (26.0-36.8)
[2023-08-10 20:12] LABS: Troponin-I High Sensitivity 319.3 ng/L (<3.5-35.0)
--- NOTE | 2023-08-10 20:17 | PC.NURSE ---
pt at this time opened eyes and bucked vent. at bedside, verbal for versed at this time.
[2023-08-10] MEDS: fentaNYL citrate/PF 100 MCG/2 ML VIAL IVPUSH (20:19)
[2023-08-10 20:27] LABS: VBG Base Excess -12.8 mmol/L; VBG HCO3 16 mmol/L (22-26); VBG pCO2 48 mmHg; VBG pH 7.12 (7.32-7.43); VBG pO2 53 mmHg
[2023-08-10 20:28] LABS: Venous Blood Gas Refer to POC result
--- NOTE | 2023-08-10 20:30 | MHC.EDTECH ---
Emptied 150MLS of yellow urine,from [place],urine sample collected and sent to lab
[2023-08-10 20:34] LABS: Appearance Urine Clear; Color Urine Yellow; Glucose Urine UA >=1000 mg/dL (Negative); Leukocyte Esterase Urine Negative (Negative); Nitrite Urine Negative (Negative); PH 5.5 (5.0-9.0); Specific Gravity - Urine >= 1.030 (1.005-1.025); UMIC TRIGGER UACC YES; Urine Blood Moderate (2+) (Negative); Urine Ketones Negative (Negative); Urine Protein 100 (2+) mg/dL (Neg-Trace)
--- NOTE | 2023-08-10 20:36 | PC.NURSE ---
this RN spoke with [facility], pt baseline is confused and disoriented, pt only able to follow commands and is alert to self only. pt family member on file- Mer Patraw [phone]. aware.
--- NOTE | 2023-08-10 20:38 | MHC.EDTECH ---
Belongings list completed and copy placed in chart
--- NOTE | 2023-08-10 20:38 | PC.NURSE ---
respiratory at bedside, pt vent settings changed to 22 for rate and 90% o2.
[2023-08-10 20:40] LABS: Lactic Acid 8.2 mmol/L (0.5-2.0)
--- NOTE | 2023-08-10 20:48 | PC.NURSE ---
at this time, pt more frequently bucking vent, aware, orders as follows.
[2023-08-10 20:53] LABS: Bacteria Urine Trace (None Seen); UACC Culture Trigger YES
[2023-08-10] MEDS: Rocuronium Bromide 50 MG/5 ML VIAL IVPUSH ×2 (20:53→23:17)
--- NOTE | 2023-08-10 20:58 | PC.NURSE ---
pt medicated per mar, pt currently sedated.
[2023-08-10 21:00] LABS: Amphetamine Screen Urine Not Detected (Not Detect); Barbiturates, Urine Not Detected (Not Detect); Benzodiazepines Screen Urine Not Detected (Not Detect); Buprenorphine Scr Not Detected (Not Detect); Cannabinoid Screen Urine Not Detected (Not Detect); Cocaine Screen Urine Not Detected (Not Detect); Fentanyl, urine Not Detected (Not Detect); Methadone Screen, Urine Not Detected (Not Detect); Opiate Screen Urine Not Detected (Not Detect); Oxycodone Screen Urine Not Detected (Not Detect); Phencyclidine Screen Urine Not Detected (Not Detect)
--- NOTE | 2023-08-10 21:57 | PC.NURSE ---
at this time, pt occasionally bucking vent and opening eyes, aware. per decrease levophed drip to 0.05mcg
[2023-08-10] MEDS: fentaNYL citrate/NS 1,000 MCG/100 ML PLAST..BAG 2.5 MCG IVCONT (22:06)
[2023-08-10 22:13] LABS: Reflex Lactate? Lactic Acid Added
[2023-08-10 22:22] LABS: Venous Blood Gas Refer to POC result
[2023-08-10 22:22] LABS: VBG Base Excess -7.9 mmol/L; VBG HCO3 19 mmol/L (22-26); VBG pCO2 43 mmHg; VBG pH 7.24 (7.32-7.43); VBG pO2 50 mmHg
--- NOTE | 2023-08-10 22:24 | PC.NURSE ---
attempted to give [facility] report x4, unable to give report. will call back and attempt again.
--- NOTE | 2023-08-10 22:34 | PC.NURSE ---
victor hugo carranza removed at this time, pt maintaining core temperature of 98.1
[2023-08-10 22:36] LABS: Lactic Acid 3.8 mmol/L (0.5-2.0)
--- NOTE | 2023-08-10 22:39 | PC.NURSE ---
due to pt being tachycardia, verbal order to stop levophed drip at this time.
[2023-08-10 22:43] LABS: Troponin-I High Sensitivity 693.3 ng/L (<3.5-35.0)
[2023-08-10] MEDS: levETIRAcetam in NaCl (iso-os) 1,000 MG/100 ML PIGGYBACK 400 MG IV (22:50)
--- NOTE | 2023-08-10 23:17 | PC.NURSE ---
[facility] at bedside, pt at this time bucking vent and blood pressure dropping. dr. viera aware.
--- NOTE | 2023-08-10 23:36 | PC.NURSE ---
pt transported out by [facility] at this time.
--- NOTE | 2023-08-10 23:43 | PC.NURSE ---
report given to Marry Lacy at [address]
[2023-08-11 00:16] LABS: Reflex Lactate? Lactic Acid Added
== END 2023-08-10 23:49 | disposition short-term general hospital (02) ==
PROVIDERS: Emergency Provider Internal Medicine; PCP Hospitalist
DX: J96.00 Acute respiratory failure, unspecified whether with hypoxia or hypercapnia (principal); T17.928A Food in respiratory tract, part unspecified causing other injury, initial encounter; I10 Essential (primary) hypertension; E11.9 Type 2 diabetes mellitus without complications; G40.909 Epilepsy, unspecified, not intractable, without status epilepticus; W44.F3XA Food entering into or through a natural orifice, initial encounter; Y93.9 Activity, unspecified; Y92.9 Unspecified place or not applicable; Y99.9 Unspecified external cause status
CPT/HCPCS: 36415; 36556; 71045; 80053; 80307; 81001; 82803; 82947; 83605; 84484; 85025; 85610; 85730; 87040; 87086; 87147; 87205; 93005; 94002; 99285; C9113; J1953; J2250; J2543; J2704; J3010

== ENCOUNTER → 2023-08-10 19:02 | Outpatient (BNV) | payer MEDICAID, SELFPAY | PROVIDERS: Emergency Provider Internal Medicine; PCP Hospitalist; Visit Provider Internal Medicine | DX: I49.3 Ventricular premature depolarization (principal) | CPT/HCPCS: 93010 ==